=== PATIENT | male | born 1950 | race Caucasian/White ===

== ENCOUNTER 2023-01-18 21:31 | Emergency (ER) | payer MEDICARE, SELFPAY ==
--- NOTE | 2023-01-18 21:33 | XRR_ITS ---
PROCEDURE INFORMATION: Exam: XR Chest Exam date and time: 01/18/2023 9:59 PM Age: 72 years old Clinical indication: Wheezing and other: High heart rate; Additional info: Cp TECHNIQUE: Imaging protocol: Radiologic exam of the chest. Views: 1 view. COMPARISON: No relevant prior studies available. FINDINGS: Lungs: Bibasilar atelectasis versus minimal infiltrate. Pleural spaces: Unremarkable. No pleural effusion. No pneumothorax. Heart/Mediastinum: Unremarkable. No cardiomegaly. Bones/joints: Unremarkable. XR/XR chest 1V portable [id number] IMPRESSION: Bibasilar atelectasis versus minimal infiltrate.
--- NOTE | 2023-01-18 21:43 | ECG_ITS ---
[facility] Test Date: 2023-01-18 Pat Name: Trace Benavides Department: Room: Gender: Male Software Support Specialist: : 1950 Requested By: Shamir Yates Order Number: [id number] Paolo MD: Guillermo Bueno M.D. Measurements Intervals [place] Rate: 138 P: 0 NE: 0 QRS: -68 QRSD: 193 T: 0 QT: 307 QTc: 466 Interpretive Statements ATRIAL FLUTTER WITH RAPID VENTRICULAR RESPONSE INTRAVENTRICULAR CONDUCTION DELAY [130+ ms QRS DURATION] No previous ECG available for comparison Electronically Signed On 01-18-2023 23:41:34 JUNIOR LOAN PROCESSOR by Guillermo Bueno M.D. [email or web address] Grad Apartments LLCsharkey issaquena community hospitalA+ Networkriverview health instituteOpenfinance/store/OM/[id number]/[id number]
[2023-01-18 21:47] VITALS: BP 152/116; PULSE 141; RESP 21; O2SAT 97; BMI 36.9
[2023-01-18 21:50] VITALS: BP 152/116; PULSE 141; RESP 18; O2SAT 96
[2023-01-18 22:05] VITALS: BP 152/116; PULSE 142; RESP 16; O2SAT 96
--- NOTE | 2023-01-18 22:06 | ED_ITS ---
HPI - Arrhythmia/Palpitations General: Chief Complaint: Arrhythmia/Palpitations Stated Complaint: Chest Pain Time Seen by Provider: 01/18/23 21:53 Source: patient Mode of arrival: ambulatory Limitations: no limitations History of Present Illness: 72-year-old male states he has been having palpitations throughout the day. He states he had a similar episode 10 years ago he is unsure what caused it he has no known history of atrial fib is not on any meds currently states he checked his heart rate at home it was in the 140s it is 140 here as well and appears to be atrial flutter he denies any chest pain denies any shortness of breath states he does can tell that his heart rate is fast. Associated symptoms: Deny nausea or vomiting Review of Systems Const: Denies: fever(s), chills, body aches or change in appetite Eyes: Denies: blurry vision or eye discomfort ENMT: Denies: throat pain or dental pain Card: Reports: palpitations Resp: Denies: dyspnea GI: Denies: abdominal pain, nausea, vomiting or diarrhea : Denies: dysuria Musc: Denies: neck pain or back pain Skin/Breast: Denies: rash Neuro: Denies: headache(s) Psych: Denies: depression Aris/Lymph: Denies: easy bruising All/Imm: Denies: urticaria PFSH ED PFSH: Medical History No pertinent past medical history Social History (Updated 01/18/23 @ 22:06 by Shamir Yates MD) Substance/Drug Use: never Physical Exam Const: COMMON NORMALS: no acute distress, patient oriented x3 and healthy appearing HENMT: COMMON NORMALS: normocephalic and atraumatic HEAD & SCALP: normocephalic and atraumatic Eye: COMMON NORMALS: Equal, round and reactive pupils present and EOMs intact bilaterally PUPIL: Yes Equal, round and reactive pupils present Neck/C-Spine: COMMON NORMALS: full ROM and supple Chest: COMMONS NORMALS: normal inspection of the chest and normal palpation of entire chest wall Resp: COMMON NORMALS: normal respiratory effort, No retractions, No use of accessory muscles and clear to auscultation bilaterally AUSCULTATION: clear to auscultation bilaterally Cardio: COMMON NORMALS: regular rate, regular rhythm and No murmurs present (Cardio) RATE: regular rate RHYTHM: regular rhythm GI: COMMON NORMALS: Normal to inspection, nondistended, normoactive bowel sounds present, Soft to palpation, non-tender and no masses PALPATION: Yes Soft to palpation Extremity: COMMON NORMALS: normal to inspection and full ROM Neuro: COMMON NORMALS: patient oriented x3, moves all extremities and no focal motor deficits Psych: COMMON NORMALS: mental status grossly normal, Normal thought process present and cooperative THOUGHT PROCESS: Normal thought process present Skin: COMMON NORMALS: no rashes or lesions noted and no wounds GENERAL SKIN EXAM: no rashes or lesions noted Course Vital Signs: Vital signs: Vital Signs Pulse Rate 141 H 01/18/23 21:47 Respiratory Rate 21 H 01/18/23 21:47 Blood Pressure 152/116 01/18/23 21:47 Pulse Oximetry 97 01/18/23 21:47 Oxygen Delivery Me thod 01/18/23 21:47 MDM - Arrhythmia/Palpitations Medical Decision Making Patient presents with atrial flutter initially the RVR he converted here with Cardizem his heart rate is now in the 60s have spoke to cardiology Dr. Brown will start him on metoprolol along with Eliquis patient's feeling improved like to go home I feel he is stable for discharge we will get him follow-up with cardiology outpatient he is return if worsening he understands agrees to plan. Lab Data 01/18/23 21:53 01/18/23 21:53 Radiology Impressions Chest X-Ray 01/18/23 21:33 IMPRESSION: Bibasilar atelectasis versus minimal infiltrate. Laboratory Results WBC 7.7 10^3/uL (4.0-10.0) 01/18/23 21:53 RBC 5.19 10^6/uL (4.1-5.3) 01/18/23 21:53 Hgb 15.2 g/dL (11.7-16.6) 01/18/23 21:53 Hct 45.7 % (42.0-52.0) 01/18/23 21:53 MCV 88.1 fl (80-94) 01/18/23 21:53 MCH 29.3 pg (28.0-34.0) 01/18/23 21:53 MCHC 33.3 g/dL (30.0-36.0) 01/18/23 21:53 RDW 13.1 % (12.1-15.1) 01/18/23 21:53 Plt Count 214 10^3/cmm (130-400) 01/18/23 21:53 MPV 10.5 fL (7.4-10.4) H 01/18/23 21:53 Neut % (Auto) 35.0 % 01/18/23 21:53 Lymph % (Auto) 49.6 % 01/18/23 21:53 [place] % (Auto) 8.9 % 01/18/23 21:53 Eos % (Auto) 4.8 % 01/18/23 21:53 Baso % (Auto) 1.4 % 01/18/23 21:53 Neut # (Auto) 2.71 10^3/uL (1.8-7.7) 01/18/23 21:53 Lymph # (Auto) 3.8 10^3/uL (0.8-4.8) 01/18/23 21:53 [place] # (Auto) 0.7 10^3/uL (0.2-0.9) 01/18/23 21:53 Eos # (Auto) 0.4 10^3/uL (0.0-0.8) 01/18/23 21:53 Baso # (Auto) 0.1 10^3/uL (0.0-0.1) 01/18/23 21:53 Nucleated RBC % (auto) 0 % 01/18/23 21:53 Nucleated RBCs # 0.0 /100WBC 01/18/23 21:53 PT 14.20 SECONDS (12.1-14.9) 01/18/23 21:53 INR 1.07 (0.8-1.2) 01/18/23 21:53 Sodium 139 mmol/L (136-145) 01/18/23 21:53 Potassium 4.5 mmol/L (3.5-5.1) 01/18/23 21:53 Chloride 104 mmol/L (98-107) 01/18/23 21:53 Carbon Dioxide 24 mmol/L (22-29) 01/18/23 21:53 Anion Gap 15.5 (5-19) 01/18/23 21:53 BUN 15 mg/dL (8-23) 01/18/23 21:53 Creatinine 0.9 mg/dL (0.7-1.2) 01/18/23 21:53 GFR Calculation 83.4 mL/min (90-130) L 01/18/23 21:53 Glucose 104 mg/dL (65-115) 01/18/23 21:53 Calculated Osmolality 289 mOsm/kg (285-295) 01/18/23 21:53 Calcium 8.8 mg/dL (8.5-10.5) 01/18/23 21:53 Total Bilirubin 0.5 mg/dL (0.15-1.2) 01/18/23 21:53 AST 18 U/L (0-40) 01/18/23 21:53 ALT 17 U/L (0-41) 01/18/23 21:53 Alkaline Phosphatase 62 U/L (40-130) 01/18/23 21:53 Troponin T Baseline 15 ng/L (0-15) 01/18/23 21:53 Total Protein 6.5 g/dL (6.6-8.7) L 01/18/23 21:53 Albumin 3.9 g/dL (3.5-5.2) 01/18/23 21:53 Globulin 2.6 g/dL (1.3-4.6) 01/18/23 21:53 EKG Data EKG 1: I personally reviewed and interpreted this EKG as follows: EKG interpretation date: 01/18/23 EKG interpretation time: 21:43 Interpretation: atrial flutter with rvr hr [address] or t wave abnormalities qrs 193 qtc 387 Other EKG comments: Chest X-Ray 01/18/23 21:33 IMPRESSION: Bibasilar atelectasis versus minimal infiltrate. Discharge Plan Discharge Patient Disposition: Home Clinical Impression: Atrial flutter Prescriptions: New metoprolol tartrate 25 mg tablet 25 mg PO BID Qty: 60 0RF Eliquis 5 mg tablet 5 mg PO BID Qty: 60 0RF Discharge Orders: Discharge ED (Routine); Ordered 01/18/23 Ordered By: Shamir Yates Referrals: Seema Brown MD [Physician] - 1-3 days Discharge Diet: Advance as tolerated Discharge Activity: Resume usual activity Patient Instructions: Atrial Flutter (ED) Coding Level of Care Code ED Gas Engine Operator Generators for Rita Garvey
[2023-01-18 22:10] LABS: Basophils # 0.1 10^3/uL (0.0-0.1); Basophils % 1.4 %; Eosinophils # 0.4 10^3/uL (0.0-0.8); Eosinophils % 4.8 %; Hematocrit 45.7 % (42.0-52.0); Hemoglobin 15.2 g/dL (11.7-16.6); Lymphocytes # 3.8 10^3/uL (0.8-4.8); Lymphocytes % 49.6 %; Mean Corpuscular HGB Conc 33.3 g/dL (30.0-36.0); Mean Corpuscular Hemoglobin 29.3 pg (28.0-34.0); Mean Corpuscular Volume 88.1 fl (80-94); Mean Platelet Volume 10.5 fL (7.4-10.4); Monocytes # 0.7 10^3/uL (0.2-0.9); Monocytes % 8.9 %; Neutrophils # 2.71 10^3/uL (1.8-7.7); Nucleated Red Blood Cells % 0 %; Platelet Count 214 10^3/cmm (130-400); Red Blood Count 5.19 10^6/uL (4.1-5.3); Red Cell Distribution Width 13.1 % (12.1-15.1); White Blood Count 7.7 10^3/uL (4.0-10.0)
[2023-01-18] MEDS: dilTIAZem 5 mg/mL SDV 5 mL 20 MG IVP (22:10)
[2023-01-18] MEDS: sodium chloride 0.9% 1,000 ML 999 ML IV (22:11)
[2023-01-18 22:20] VITALS: BP 127/97; PULSE 140; RESP 20; O2SAT 96
[2023-01-18 22:22] LABS: INR 1.07 (0.8-1.2)
[2023-01-18 22:28] LABS: Troponin(5th) Baseline 15 ng/L (0-15)
[2023-01-18 22:29] LABS: Alanine Aminotransferase 17 U/L (0-41); Albumin Level 3.9 g/dL (3.5-5.2); Alkaline Phosphatase 62 U/L (40-130); Anion Gap 15.5 (5-19); Aspartate Amino Transferase 18 U/L (0-40); Blood Urea Nitrogen 15 mg/dL (8-23); Calcium 8.8 mg/dL (8.5-10.5); Carbon Dioxide 24 mmol/L (22-29); Chloride 104 mmol/L (98-107); Globulin 2.6 g/dL (1.3-4.6); Glomerular Filtration Rate 83.4 mL/min (90-130); Glucose 104 mg/dL (65-115); Osmolality Calculated 289 mOsm/kg (285-295); Potassium 4.5 mmol/L (3.5-5.1); Sodium 139 mmol/L (136-145); Total Bilirubin 0.5 mg/dL (0.15-1.2); Total Protein 6.5 g/dL (6.6-8.7)
[2023-01-18 22:35] VITALS: BP 111/63; PULSE 61; RESP 18; O2SAT 96
[2023-01-18 22:50] VITALS: BP 111/69; PULSE 63; RESP 16; O2SAT 95
--- NOTE | 2023-01-18 23:33 | ECG_ITS ---
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 Measurements Intervals [place] Rate: 61 P: 0 [place]: 0 QRS: -48 QRSD: 130 T: -42 QT: 417 QTc: 421 Interpretive Statements UNCERTAIN IRREGULAR RHYTHM LEFT ANTERIOR FASCICULAR BLOCK [QRS AXIS <= -45, QR IN I, RS IN II] NONSPECIFIC ST & T-WAVE ABNORMALITY Compared to ECG 01/18/2023 21:43:47 Left anterior fascicular block now present T-wave abnormality now present Atrial flutter no longer present Intraventricular conduction delay no longer present Electronically Signed On 01-18-2023 23:43:08 GERIATRICS PHYSICIAN by Guillermo Bueno M.D. [email or web address] Networkslos alamitos [facility].SustainU/store/OM/[id number]/[id number]
--- NOTE | 2023-01-19 08:17 | DCPLANNER ---
Addendum entered by Melissa Lu 03/17/23 13:36: Patient had a follow up appointment with heart care - patient did attend appointment. Addendum entered by Melissa Lu 01/19/23 13:50: Patient has a follow up appointment scheduled for Wednesday March 15, 2023 at 3:[address] Brown at [facility]. Clinic will call patient with appointment information. Original Note: operations program manager had message to schedule a follow up appointment for patient with cardiology. operations program manager sent patients information to the front office staff at [facility]. Patients information will be printed and reviewed. Clinic will call patient with appointment information.
== END 2023-01-18 22:55 | disposition home or self-care (01) ==
PROVIDERS: Emergency Provider Emergency Medicine
DX: I48.92 Unspecified atrial flutter (principal); Z79.01 Long term (current) use of anticoagulants
CPT/HCPCS: 36415; 71045; 80053; 84484; 85025; 85610; 93005; 96361; 96374; 99285; J3490; J7030

== ENCOUNTER 2023-01-19 17:02 | Emergency (ER) | payer MEDICARE, SELFPAY ==
[2023-01-19] VITALS (30 sets, daily range): BP systolic 120–122; BP diastolic 77–88; PULSE 50–133; RESP 14–25; TEMP 36.5; O2SAT 88–97; BMI 36.9
--- NOTE | 2023-01-19 17:23 | ECG_ITS ---
[facility] Test Date: 2023-01-19 Pat Name: Trace Benavides Department: Room: Gender: Male Superintendent Cemetery: : 1950 Requested By: Benjamín Pena Order Number: [id number] Paolo MD: Seema Brown M.D. Measurements Intervals [place] Rate: 132 P: 261 GA: 161 QRS: -64 QRSD: 206 T: 0 QT: 320 QTc: 475 Interpretive Statements ECTOPIC ATRIAL TACHYCARDIA/atrial flutter RIGHT BUNDLE BRANCH BLOCK [120+ ms QRS DURATION, UPRIGHT V1, 40+ ms S IN I/aVL/V4/V5/V6] LEFT ANTERIOR FASCICULAR BLOCK [QRS AXIS <= -45, QR IN I, RS IN II] POSSIBLE SEPTAL MYOCARDIAL INFARCTION , PROBABLY OLD [30 ms Q WAVE IN V1/V2] Compared to ECG 01/18/2023 22:23:38 Right bundle-branch block now present Myocardial infarct finding now present T-wave abnormality no longer present Electronically Signed On 01-20-2023 14:15:17 DUCK FARMER by Seema Brown M.D. [email or web address].Neosens/store/[id number]
--- NOTE | 2023-01-19 17:25 | ECG_ITS ---
[facility] Test Date: 2023-01-19 Pat Name: Trace Benavides Department: Room: Gender: Male Material Specialist: : 1950 Requested By: Shamir Yates Order Number: [id number] Paolo MD: Seema Brown M.D. Measurements Intervals [place] Rate: 127 P: -82 PA: 161 QRS: -63 QRSD: 199 T: 0 QT: 324 QTc: 472 Interpretive Statements Ectopic atrial tachycardia/atrial flutter Left anterior fascicular block INTRAVENTRICULAR CONDUCTION DELAY [130+ ms QRS DURATION] Compared to ECG 01/18/2023 22:23:38 Intraventricular conduction delay now present T-wave abnormality no longer present Electronically Signed On 01-20-2023 14:18:14 ORNAMENTAL METAL WORKER APPRENTICE by Seema Brown M.D. [email or web address].Riiid81st medical groupGeeklistmercy health west hospital.SOLOMO365/store/OM/[id number]
[2023-01-19] MEDS: dilTIAZem 5 mg/mL SDV 5 mL 15 MG IVP (17:46)
[2023-01-19] MEDS: sodium chloride 0.9% 1,000 ML 999 ML IV (17:46)
[2023-01-19 18:24] LABS: Basophils # 0.1 10^3/uL (0.0-0.1); Basophils % 1.6 %; Eosinophils # 0.4 10^3/uL (0.0-0.8); Eosinophils % 6.4 %; Hematocrit 44.2 % (42.0-52.0); Hemoglobin 14.6 g/dL (11.7-16.6); Lymphocytes # 2.9 10^3/uL (0.8-4.8); Lymphocytes % 48.1 %; Mean Corpuscular Hemoglobin 29.4 pg (28.0-34.0); Mean Corpuscular Volume 88.9 fl (80-94); Mean Platelet Volume 10.5 fL (7.4-10.4); Monocytes # 0.6 10^3/uL (0.2-0.9); Monocytes % 10.5 %; Neutrophils # 2.01 10^3/uL (1.8-7.7); Neutrophils % 33.2 %; Nucleated Red Blood Cells % 0 %; Platelet Count 208 10^3/cmm (130-400); Red Blood Count 4.97 10^6/uL (4.1-5.3); Red Cell Distribution Width 13.1 % (12.1-15.1); White Blood Count 6.1 10^3/uL (4.0-10.0)
--- NOTE | 2023-01-19 18:28 | ED_ITS ---
HPI - Arrhythmia/Palpitations General: Chief Complaint: Arrhythmia/Palpitations Stated Complaint: irregular hr Time Seen by Provider: 01/19/23 17:35 Source: patient Mode of arrival: ambulatory Limitations: no limitations History of Present Illness: 72-year-old male who was seen here last night for atrial flutter with RVR he started on metoprolol he states that he had went back and before he took his morning dose and has been heart rate in the 120s throughout the day he was originally in the 120s here by time I had seen him he did already receive Cardizem and he is now in the 50s. He denies any chest pain states he is felt great all day actually. Associated symptoms: Deny nausea or vomiting Review of Systems Const: Denies: fever(s), chills, body aches or change in appetite Eyes: Denies: blurry vision or eye discomfort ENMT: Denies: throat pain or dental pain Card: Reports: palpitations Resp: Denies: dyspnea GI: Denies: abdominal pain, nausea, vomiting or diarrhea : Denies: dysuria Musc: Denies: neck pain or back pain Skin/Breast: Denies: rash Neuro: Denies: headache(s) Psych: Denies: depression Aris/Lymph: Denies: easy bruising All/Imm: Denies: urticaria PFSH ED PFSH: Medical History No pertinent past medical history Social History Substance/Drug Use: never Physical Exam Const: COMMON NORMALS: no acute distress, patient oriented x3 and healthy appearing HENMT: COMMON NORMALS: normocephalic and atraumatic HEAD & SCALP: normocephalic and atraumatic Eye: COMMON NORMALS: Equal, round and reactive pupils present and EOMs intact bilaterally PUPIL: Yes Equal, round and reactive pupils present Neck/C-Spine: COMMON NORMALS: full ROM and supple Chest: COMMONS NORMALS: normal inspection of the chest and normal palpation of entire chest wall Resp: COMMON NORMALS: normal respiratory effort, No retractions, No use of accessory muscles and clear to auscultation bilaterally AUSCULTATION: clear to auscultation bilaterally Cardio: COMMON NORMALS: regular rate, regular rhythm and No murmurs present (Cardio) RATE: regular rate RHYTHM: regular rhythm GI: COMMON NORMALS: Normal to inspection, nondistended, normoactive bowel sounds present, Soft to palpation, non-tender and no masses PALPATION: Yes Soft to palpation Extremity: COMMON NORMALS: normal to inspection and full ROM Neuro: COMMON NORMALS: patient oriented x3, moves all extremities and no focal motor deficits Psych: COMMON NORMALS: mental status grossly normal, Normal thought process present and cooperative THOUGHT PROCESS: Normal thought process present Skin: COMMON NORMALS: no rashes or lesions noted and no wounds GENERAL SKIN EXAM: no rashes or lesions noted Course Vital Signs: Vital signs: Vital Signs Temperature 97.7 F 01/19/23 17:15 Pulse Rate 53 L 01/19/23 20:00 Respiratory Rate 23 H 01/19/23 20:00 Blood Pressure 120/77 01/19/23 20:00 Pulse Oximetry 97 01/19/23 20:00 Oxygen Delivery Me thod 01/19/23 17:15 MDM - Arrhythmia/Palpitations Medical Decision Making Patient presents with atrial flutter he did drink coffee his morning and take his metoprolol get likely stenting back in the flutter he is converted here he feels improved he had no chest pain or shortness of breath I feel he is stable for discharge he is to continue take his metoprolol try to limit his caffeine intake he is to follow-up with Dr. Brown. Lab Data 01/19/23 18:13 01/19/23 18:13 Laboratory Results WBC 6.1 10^3/uL (4.0-10.0) 01/19/23 18:13 RBC 4.97 10^6/uL (4.1-5.3) 01/19/23 18:13 Hgb 14.6 g/dL (11.7-16.6) 01/19/23 18:13 Hct 44.2 % (42.0-52.0) 01/19/23 18:13 MCV 88.9 fl (80-94) 01/19/23 18:13 MCH 29.4 pg (28.0-34.0) 01/19/23 18:13 MCHC 33.0 g/dL (30.0-36.0) 01/19/23 18:13 RDW 13.1 % (12.1-15.1) 01/19/23 18:13 Plt Count 208 10^3/cmm (130-400) 01/19/23 18:13 MPV 10.5 fL (7.4-10.4) H 01/19/23 18:13 Neut % (Auto) 33.2 % 01/19/23 18:13 Lymph % (Auto) 48.1 % 01/19/23 18:13 [place] % (Auto) 10.5 % 01/19/23 18:13 Eos % (Auto) 6.4 % 01/19/23 18:13 Baso % (Auto) 1.6 % 01/19/23 18:13 Neut # (Auto) 2.01 10^3/uL (1.8-7.7) 01/19/23 18:13 Lymph # (Auto) 2.9 10^3/uL (0.8-4.8) 01/19/23 18:13 [place] # (Auto) 0.6 10^3/uL (0.2-0.9) 01/19/23 18:13 Eos # (Auto) 0.4 10^3/uL (0.0-0.8) 01/19/23 18:13 Baso # (Auto) 0.1 10^3/uL (0.0-0.1) 01/19/23 18:13 Nucleated RBC % (auto) 0 % 01/19/23 18:13 Nucleated RBCs # 0.0 /100WBC 01/19/23 18:13 Sodium 140 mmol/L (136-145) 01/19/23 18:13 Potassium 4.5 mmol/L (3.5-5.1) 01/19/23 18:13 Chloride 107 mmol/L (98-107) 01/19/23 18:13 Carbon Dioxide 23 mmol/L (22-29) 01/19/23 18:13 Anion Gap 14.5 (5-19) 01/19/23 18:13 BUN 15 mg/dL (8-23) 01/19/23 18:13 Creatinine 0.8 mg/dL (0.7-1.2) 01/19/23 18:13 GFR Calculation 95.6 mL/min (90-130) 01/19/23 18:13 Glucose 112 mg/dL (65-115) 01/19/23 18:13 Calculated Osmolality 292 mOsm/kg (285-295) 01/19/23 18:13 Calcium 8.4 mg/dL (8.5-10.5) L 01/19/23 18:13 Total Bilirubin 0.5 mg/dL (0.15-1.2) 01/19/23 18:13 AST 18 U/L (0-40) 01/19/23 18:13 ALT 14 U/L (0-41) 01/19/23 18:13 Alkaline Phosphatase 56 U/L (40-130) 01/19/23 18:13 Total Protein 6.3 g/dL (6.6-8.7) L 01/19/23 18:13 Albumin 3.6 g/dL (3.5-5.2) 01/19/23 18:13 Globulin 2.7 g/dL (1.3-4.6) 01/19/23 18:13 EKG Data EKG 1: I personally reviewed and interpreted this EKG as follows: EKG interpretation date: 01/19/23 EKG interpretation time: 17:41 Interpretation: sinus tach hr [address] or t wave abnormalities qrs 199 qtc 399 Discharge Plan Discharge Patient Disposition: Home Clinical Impression: Atrial flutter Prescriptions: No Action metoprolol tartrate 25 mg tablet 25 mg PO BID Qty: 60 0RF Eliquis 5 mg tablet 5 mg PO BID Qty: 60 0RF Discharge Orders: Discharge ED (Routine); Ordered 01/19/23 Ordered By: Shamir Yates Discharge Diet: Advance as tolerated Discharge Activity: Resume usual activity Patient Instructions: Atrial Flutter (ED) Coding Level of Care Code ED Representative Personal Service for Rita Garvey
[2023-01-19 18:38] LABS: Alanine Aminotransferase 14 U/L (0-41); Albumin Level 3.6 g/dL (3.5-5.2); Alkaline Phosphatase 56 U/L (40-130); Anion Gap 14.5 (5-19); Aspartate Amino Transferase 18 U/L (0-40); Blood Urea Nitrogen 15 mg/dL (8-23); Calcium 8.4 mg/dL (8.5-10.5); Carbon Dioxide 23 mmol/L (22-29); Chloride 107 mmol/L (98-107); Globulin 2.7 g/dL (1.3-4.6); Glomerular Filtration Rate 95.6 mL/min (90-130); Glucose 112 mg/dL (65-115); Osmolality Calculated 292 mOsm/kg (285-295); Potassium 4.5 mmol/L (3.5-5.1); Sodium 140 mmol/L (136-145); Total Bilirubin 0.5 mg/dL (0.15-1.2); Total Protein 6.3 g/dL (6.6-8.7)
--- NOTE | 2023-01-27 15:09 | DCPLANNER ---
Addendum entered by Melissa Lu 01/27/23 15:09: TCM called patient due to no primary care physician listed in patients chart - patient stated that he sees Patrick Carlson at [facility] Original Note: 01.22.23 - TCM called patient due to no primary care physician listed in patients chart - no answer at this time.
== END 2023-01-19 20:06 | disposition home or self-care (01) ==
PROVIDERS: Family Medicine; Emergency Provider Emergency Medicine
DX: I48.92 Unspecified atrial flutter (principal)
CPT/HCPCS: 36415; 80053; 85025; 93005; 96374; 99284; J3490; J7030

== ENCOUNTER 2023-01-21 16:57 | Observation (INO) | payer MEDICARE, SELFPAY ==
[2023-01-21] VITALS (8 sets, daily range): BP systolic 101–124; BP diastolic 64–92; PULSE 48–128; RESP 14–22; TEMP 36.4; O2SAT 95–98
--- NOTE | 2023-01-21 18:02 | XRR_ITS ---
PROCEDURE INFORMATION: Exam: XR Chest Exam date and time: 01/21/2023 6:42 PM Age: 72 years old Clinical indication: Pain; Chest pressure; Additional info: Cp TECHNIQUE: Imaging protocol: Radiologic exam of the chest. Views: 1 view. COMPARISON: CR (CHEST, ) 01/18/2023 9:59 PM FINDINGS: Lungs: Left lower lobe atelectasis versus minimal infiltrate. Pleural spaces: Unremarkable. No pleural effusion. No pneumothorax. Heart/Mediastinum: Unremarkable. No cardiomegaly. Bones/joints: Unremarkable. XR/XR chest 1V portable [id number] IMPRESSION: Left lower lobe atelectasis versus minimal infiltrate.
--- NOTE | 2023-01-21 18:02 | ECG_ITS ---
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 Measurements Intervals [place] Rate: 129 P: -80 MD: 211 QRS: -65 QRSD: 200 T: 0 QT: 317 QTc: 465 Interpretive Statements ECTOPIC ATRIAL TACHYCARDIA WITH FIRST DEGREE AV BLOCK RIGHT BUNDLE BRANCH BLOCK [120+ ms QRS DURATION, UPRIGHT V1, 40+ ms S IN I/aVL/V4/V5/V6] LEFT ANTERIOR FASCICULAR BLOCK [QRS AXIS <= -45, QR IN I, RS IN II] POSSIBLE SEPTAL MYOCARDIAL INFARCTION , PROBABLY OLD [30 ms Q WAVE IN V1/V2] Compared to ECG 01/19/2023 17:41:38 First degree AV block now present Right bundle-branch block now present Myocardial infarct finding now present Intraventricular conduction delay no longer present Electronically Signed On 01-22-2023 21:39:17 WINDING DEPARTMENT SUPERVISOR by Seema Brown M.D. [email or web address] saint peters hospitalKnewCoinselect medical [facility].[employer]/store/NU/[id number] sabrina
[2023-01-21 18:27] LABS: Basophils # 0.1 10^3/uL (0.0-0.1); Basophils % 1.4 %; Eosinophils # 0.4 10^3/uL (0.0-0.8); Eosinophils % 5.5 %; Hematocrit 44.9 % (42.0-52.0); Hemoglobin 14.9 g/dL (11.7-16.6); Lymphocytes # 3.2 10^3/uL (0.8-4.8); Lymphocytes % 39.8 %; Mean Corpuscular HGB Conc 33.2 g/dL (30.0-36.0); Mean Corpuscular Hemoglobin 28.9 pg (28.0-34.0); Mean Platelet Volume 10.7 fL (7.4-10.4); Monocytes # 0.7 10^3/uL (0.2-0.9); Monocytes % 8.2 %; Neutrophils # 3.55 10^3/uL (1.8-7.7); Neutrophils % 44.8 %; Nucleated Red Blood Cells % 0 %; Platelet Count 222 10^3/cmm (130-400); Red Blood Count 5.16 10^6/uL (4.1-5.3); Red Cell Distribution Width 13.1 % (12.1-15.1); White Blood Count 7.9 10^3/uL (4.0-10.0)
[2023-01-21] MEDS: dilTIAZem 5 mg/mL SDV 5 mL 10 MG IVP (18:34)
[2023-01-21 18:45] LABS: INR 1.12 (0.8-1.2)
[2023-01-21 18:52] LABS: Troponin(5th) Baseline 11 ng/L (0-15)
--- NOTE | 2023-01-21 19:09 | W.ED.CHESTPA ---
HPI - Chest Pain General: Chief Complaint: Chest Pain Stated Complaint: chest pain Time Seen by Provider: 01/21/23 18:02 Source: patient Mode of arrival: ambulatory Limitations: no limitations History of Present Illness: 72-year-old male who is got a history of atrial flutter he has been seen twice before he started on metoprolol the first time second time he drink caffeine went back into flutter was converted easily both times the Cardizem he is here again today with flutter heart rate in the 120s denies any pain denies any shortness of breath denies any vomiting. Associated symptoms: Reports palpitations; Deny abdominal pain, dyspnea, fever(s), nausea or vomiting Review of Systems Const: Denies: fever(s), chills, body aches or change in appetite Eyes: Denies: blurry vision or eye discomfort ENMT: Denies: throat pain or dental pain Card: Reports: palpitations and irregular heart rhythm; Denies: chest pain Resp: Denies: dyspnea GI: Denies: abdominal pain, nausea, vomiting or diarrhea : Denies: dysuria Musc: Denies: neck pain or back pain Skin/Breast: Denies: rash Neuro: Denies: headache(s) Psych: Denies: depression Aris/Lymph: Denies: easy bruising All/Imm: Denies: urticaria PFSH ED PFSH: Medical History No pertinent past medical history Social History Substance/Drug Use: never Physical Exam Const: COMMON NORMALS: no acute distress, patient oriented x3 and healthy appearing HENMT: COMMON NORMALS: normocephalic and atraumatic HEAD & SCALP: normocephalic and atraumatic Eye: COMMON NORMALS: Equal, round and reactive pupils present and EOMs intact bilaterally PUPIL: Yes Equal, round and reactive pupils present Neck/C-Spine: COMMON NORMALS: full ROM and supple Chest: COMMONS NORMALS: normal inspection of the chest and normal palpation of entire chest wall Resp: COMMON NORMALS: normal respiratory effort, No retractions, No use of accessory muscles and clear to auscultation bilaterally AUSCULTATION: clear to auscultation bilaterally Cardio: COMMON NORMALS: No murmurs present (Cardio) RATE: tachycardic RHYTHM: abnormal rhythm irregularly irregular GI: COMMON NORMALS: Normal to inspection, nondistended, normoactive bowel sounds present, Soft to palpation, non-tender and no masses PALPATION: Yes Soft to palpation Extremity: COMMON NORMALS: normal to inspection and full ROM Neuro: COMMON NORMALS: patient oriented x3, moves all extremities and no focal motor deficits Psych: COMMON NORMALS: mental status grossly normal, Normal thought process present and cooperative THOUGHT PROCESS: Normal thought process present Skin: COMMON NORMALS: no rashes or lesions noted and no wounds GENERAL SKIN EXAM: no rashes or lesions noted Course Vital Signs: Vital signs: Vital Signs Temperature 97.5 F L 01/21/23 17:10 Pulse Rate 79 01/21/23 19:16 Respiratory Rate 22 H 01/21/23 19:16 Blood Pressure 109/64 01/21/23 19:16 Pulse Oximetry 97 01/21/23 19:16 Oxygen Delivery Me thod 01/21/23 18:01 MDM - Chest Pain Medical Decision Making Patient presents here with atrial flutter is his third visit he keeps going in and out of it he is converted again here with Cardizem his heart rates now in the 50s admitted speak to Dr. Brown and his is his third visit in 4 days will admit at this time for med adjustment. Lab Data 01/21/23 18:21 01/21/23 18:21 Radiology Impressions Chest X-Ray 01/21/23 18:02 IMPRESSION: Left lower lobe atelectasis versus minimal infiltrate. Laboratory Results WBC 7.9 10^3/uL (4.0-10.0) 01/21/23 18:21 RBC 5.16 10^6/uL (4.1-5.3) 01/21/23 18:21 Hgb 14.9 g/dL (11.7-16.6) 01/21/23 18:21 Hct 44.9 % (42.0-52.0) 01/21/23 18:21 MCV 87.0 fl (80-94) 01/21/23 18:21 MCH 28.9 pg (28.0-34.0) 01/21/23 18: MCHC 33.2 g/dL (30.0-36.0) 01/21/23 18:21 RDW 13.1 % (12.1-15.1) 01/21/23 18:21 Plt Count 222 10^3/cmm (130-400) 01/21/23 18:21 MPV 10.7 fL (7.4-10.4) H 01/21/23 18:21 Neut % (Auto) 44.8 % 01/21/23 18:21 Lymph % (Auto) 39.8 % 01/21/23 18:21 [place] % (Auto) 8.2 % 01/21/23 18:21 Eos % (Auto) 5.5 % 01/21/23 18:21 Baso % (Auto) 1.4 % 01/21/23 18: Neut # (Auto) 3.55 10^3/uL (1.8-7.7) 01/21/23 18: Lymph # (Auto) 3.2 10^3/uL (0.8-4.8) 01/21/23 18:21 [place] # (Auto) 0.7 10^3/uL (0.2-0.9) 01/21/23 18:21 Eos # (Auto) 0.4 10^3/uL (0.0-0.8) 01/21/23 18: Baso # (Auto) 0.1 10^3/uL (0.0-0.1) 01/21/23 18: Nucleated RBC % (auto) 0 % 01/21/23 18: Nucleated RBCs # 0.0 /100WBC 01/21/23 18: PT 14.80 SECONDS (12.1-14.9) 01/21/23 18:21 INR 1.12 (0.8-1.2) 01/21/23 18:21 Sodium 141 mmol/L (136-145) 01/21/23 18:21 Potassium 4.8 mmol/L (3.5-5.1) 01/21/23 18:21 Chloride 106 mmol/L (98-107) 01/21/23 18:21 Carbon Dioxide 20 mmol/L (22-29) L 01/21/23 18:21 Anion Gap 19.8 (5-19) H 01/21/23 18:21 BUN 16 mg/dL (8-23) 01/21/23 18:21 Creatinine 0.7 mg/dL (0.7-1.2) 01/21/23 18:21 GFR Calculation 111.5 mL/min (90-130) 01/21/23 18:21 Glucose 114 mg/dL (65-115) 01/21/23 18:21 Calculated Osmolality 294 mOsm/kg (285-295) 01/21/23 18:21 Calcium 8.8 mg/dL (8.5-10.5) 01/21/23 18:21 Total Bilirubin 0.4 mg/dL (0.15-1.2) 01/21/23 18:21 AST 17 U/L (0-40) 01/21/23 18:21 ALT 17 U/L (0-41) 01/21/23 18:21 Alkaline Phosphatase 63 U/L (40-130) 01/21/23 18:21 Troponin T Baseline 11 ng/L (0-15) 01/21/23 18:21 Total Protein 6.5 g/dL (6.6-8.7) L 01/21/23 18:21 Albumin 4.0 g/dL (3.5-5.2) 01/21/23 18:21 Globulin 2.5 g/dL (1.3-4.6) 01/21/23 18:21 Discharge Plan Discharge Patient Disposition: Admitted As Inpatient Clinical Impression: Atrial flutter Prescriptions: No Action metoprolol tartrate 25 mg tablet 25 mg PO BID Qty: 60 0RF Eliquis 5 mg tablet 5 mg PO BID Qty: 60 0RF aspirin 81 mg Tablet,Chewable 81 mg PO DAILY Referrals: Seema Brown MD [Primary Care Provider] - Coding Level of Care Code ED 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
[2023-01-21 19:10] LABS: Alanine Aminotransferase 17 U/L (0-41); Alkaline Phosphatase 63 U/L (40-130); Anion Gap 19.8 (5-19); Aspartate Amino Transferase 17 U/L (0-40); Blood Urea Nitrogen 16 mg/dL (8-23); Calcium 8.8 mg/dL (8.5-10.5); Carbon Dioxide 20 mmol/L (22-29); Chloride 106 mmol/L (98-107); Globulin 2.5 g/dL (1.3-4.6); Glomerular Filtration Rate 111.5 mL/min (90-130); Glucose 114 mg/dL (65-115); Osmolality Calculated 294 mOsm/kg (285-295); Potassium 4.8 mmol/L (3.5-5.1); Sodium 141 mmol/L (136-145); Total Bilirubin 0.4 mg/dL (0.15-1.2); Total Protein 6.5 g/dL (6.6-8.7)
--- NOTE | 2023-01-21 19:54 | ECG_ITS ---
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 Measurements Intervals [place] Rate: 55 P: 0 MO: 0 QRS: -56 QRSD: 128 T: -54 QT: 425 QTc: 407 Interpretive Statements Ectopic atrial rhythm with bradycardia and junctional escape beats and occasional PVCs RIGHT BUNDLE BRANCH BLOCK [120+ ms QRS DURATION, UPRIGHT V1, 40+ ms S IN I/aVL/V4/V5/V6] LEFT ANTERIOR FASCICULAR BLOCK [QRS AXIS <= -45, QR IN I, RS IN II] MODERATE T-WAVE ABNORMALITY, CONSIDER INFERIOR ISCHEMIA [-0.1+ mV T-WAVE IN II/aVF] Compared to ECG 01/21/2023 17:17:34 Ventricular premature complex(es) now present Aberrant conduction of supraventricular beat(s) now present T-wave abnormality now present.Possible ischemia now present First degree AV block no longer present.Myocardial infarct finding no longer present Electronically Signed On 01-22-2023 21:52:22 ENGINEERING DOCUMENTATION SPECIALIST by Seema Brown M.D. [id number]
--- NOTE | 2023-01-21 20:56 | P.HP_ITS ---
Providers/Chief Complaint Primary Care Provider: Seema Brown MD Chief Complaint: chest pain History of Present Illness Trace Benavides is a 72 year old male with past medical history of recently diagnosed atrial flutter, this is his third admission in quick succession for the management of atrial flutter with RVR, during his last 2 prior admission he converted to normal sinus rhythm in ER and was sent home on metoprolol tartrate 25 mg p.o. twice daily along with Eliquis for anticoagulation, came in today with similar presentation of a flutter with RVR, with heart rate in 120s ,he was complaining of 1 or 2 episodes of substernal chest pain today, which spontaneously resolved, denied any diaphoresis, shortness of breath, nausea vomiting headache.He received Cardizem 10 mg IV 1 dose in the ER today. Pertinent labs: WBC 7.9, H&H 14/44 PLT: 222, serum sodium 141 serum potassium 4.8, BUN 16 serum creatinine 0.7 Troponin trend: Unremarkable EKG: On arrival has shown ectopic atrial tachycardia with first-degree AV block,RBBB Telemetry monitoring is showing PVCs. Review of Systems General: Reports: 10 or more systems reviewed and unremarkable except in HPI and below Const: Denies: fever(s), chills, body aches, change in appetite or diaphoresis Card: Denies: palpitations, edema, swelling of feet/ankles, dyspnea on exertion, orthopnea or leg pain with exertion Resp: Denies: dyspnea, productive cough, wheezing or pain on inspiration GI: Denies: abdominal pain, nausea, vomiting, diarrhea or constipation : Denies: flank pain or difficulty urinating Musc: Denies: back pain, extremity pain or extremity swelling Neuro: Denies: headache(s), difficulty walking or confusion Medications/Allergies Home Medications Medication Instructions Recorded Confirmed Last Taken Type apixaban 5 mg tablet (Eliquis) 5 mg PO BID #60 tabs 01/18/23 01/21/23 01/21/23 Rx metoprolol tartrate 25 mg tablet 25 mg PO BID #60 tabs 01/18/23 01/21/23 01/21/23 Rx aspirin 81 mg chewable tablet 81 mg PO DAILY 01/21/23 01/21/23 01/20/23 History Allergies Allergy/AdvReac Type Severity Reaction Status Date / Time No Known Allergies Allergy Verified 01/21/23 17:14 PFSH Acute PFSH: Medical History No pertinent past medical history Social History Substance/Drug Use: never Vitals/I&O/Wt Last Vital Signs Temp 97.5 F L 01/21/23 17:10 Pulse 79 01/21/23 19:16 Resp 22 H 01/21/23 19:16 BP 109/64 01/21/23 19:16 Pulse Ox 97 01/21/23 19:16 O2 Del Method 01/21/23 18:01 Weight last 48 hrs Weight 114.305 kg Physical Exam Const: COMMON NORMALS: patient oriented x3 HENMT: COMMON NORMALS: normocephalic and atraumatic Chest: COMMONS NORMALS: normal inspection of the chest and normal palpation of entire chest wall CHEST: Yes Symmetrical chest wall rise Resp: COMMON NORMALS: clear to auscultation bilaterally AUSCULTATION: clear to auscultation bilaterally Cardio: COMMON NORMALS: regular rate, regular rhythm, S1 normal heart sound present, S2 normal heart sound present, No gallops present (Cardio), No murmurs present (Cardio), No rub (Cardio) and Peripheral pulses 2+ throughout RATE: regular rate RHYTHM: regular rhythm HEART SOUNDS: S1 normal heart sound present and S2 normal heart sound present PERIPHERAL PULSES: Peripheral pulses 2+ throughout GI: COMMON NORMALS: Normal to inspection, nondistended, normoactive bowel sounds present, Soft to palpation, non-tender, No hepatosplenomegaly present and no masses AUSCULTATION: Yes normoactive bowel sounds PALPATION: Yes Soft to palpation and Yes No hepatosplenomegaly present RECTAL EXAM: Yes deferred Extremity: COMMON NORMALS: no clubbing, cyanosis or edema and no pedal edema Neuro: COMMON NORMALS: patient oriented x3 Data 01/21/23 18:21 01/21/23 18:21 A&P Assessment and plan (1) Atrial flutter with rapid ventricular response: Plan 72 year old male with past medical history of recently diagnosed atrial flutter, this is his third admission in quick succession for the management of atrial flutter with RVR, during his last 2 prior admission he converted to normal sinus rhythm in ER and was sent home on metoprolol tartrate 25 mg p.o. twice daily along with Eliquis for anticoagulation, came in today with similar presentation of a flutter with RVR, he was complaining of 1 or 2 episodes of substernal chest pain today, which spontaneously resolved, denied any diaphoresis, shortness of breath, nausea vomiting headache.He received Cardizem 10 mg IV 1 dose in the ER today. Assessment: A flutter with RVR Currently EKG showing ectopic atrial tachycardia, telemetry monitoring PVCs Follow 2D echo TSH Currently on therapeutic anticoagulation with [facility] on board, plan to do stress test to rule out underlying coronary artery disease. CODE STATUS: Full code DVT prophylaxis: On Lovenox Attestations Medical Necessity Statement*: Patient is in hospital for management of A-fib with RVR. Anticipated length of stay greater 2 midnights Coding Level of Care Code 01425 Diagnoses Atrial flutter with rapid ventricular response I48.92
--- NOTE | 2023-01-21 20:56 | USCV_ITS ---
Trace Benavides Age: 72 Gender: M : 1950 Exam Date: 01/21/2023 22:22 Ordering Phys: Ahsan Cee MD Technologist: NENITA Exam Location: [facility] [place] Indication: new onset atrial flutter. No history of cardiac intervention per patient. BP: 109 / 64 HR: 47 Rhythm: Sinus Technical Quality: Technically difficult study with OPTISON MEASUREMENTS (Male / Female) Normal Values 2D ECHO LV Diastolic Diameter PLAX 4.1 cm 4.2 - 5.9 / 3.9 - 5.3 cm LV Systolic Diameter PLAX 2.6 cm IVS Diastolic Thickness 1.6 cm 0.6 - 1.0 / 0.6 - 0.9 cm IVS Systolic Thickness 1.7 cm LVPW Diastolic Thickness 1.5 cm 0.6 - 1.0 / 0.6 - 0.9 cm LVPW Systolic Thickness 1.7 cm LVOT Diameter 2.0 cm LV Ejection Fraction 2D Teich 65.9 % LV Ejection Fraction MOD 2C 54.7 % LV Ejection Fraction 2C AL 55.3 % LA Diameter 3.5 cm LA Width 3.8 cm LA Height 5.6 cm RA Width 4.2 cm RA Height 5.4 cm Aorta at Sinotubular Diameter 2.9 cm IVC Diameter 1.8 cm M-MODE Aortic Annulus Diameter 3.5 cm LA Ao Ratio MM 1.0 DOPPLER AV Peak Velocity 140.0 cm/s LVOT Peak Velocity 95.0 cm/s AV Area Cont Eq vti 2.4 cm squared AV Area Cont Eq pk 2.2 cm squared TR Peak Velocity 238.3 cm/s TR Peak Gradient 22.7 mmHg TV Peak E Velocity 50.0 cm/s Right Atrial Pressure 5.0 mmHg Pulmonary Artery Systolic Pressu 27.7 mmHg FINDINGS Left Ventricle Normal left ventricular size and systolic function, EF 62 %. No regional wall motion abnormalities. Right Ventricle Possibly of normal size Right Atrium Right atrium not well visualized. Left Atrium Possibly of normal size Mitral Valve Morphology could not be delineated well Aortic Valve Trace aortic valve regurgitation. Tricuspid Valve Morphology could not be delineated well Pulmonic Valve Pulmonic valve not well visualized. Pericardium No pericardial effusion. Aorta Normal aortic annulus size. IVC Normal inferior vena cava. CONCLUSIONS Normal left ventricular size and systolic function, EF 62 %. No regional wall motion abnormalities. Technically difficult study because of poor ultrasonic window. Optison was used for endocardial delineation and ejection fraction estimation Trace aortic valve regurgitation. There is no pericardial effusion. No similar previous studies are available for comparison Dr Seema Brown MD [facility] (Electronically Signed) Final Date: 22 January 2023 09:47 S
[2023-01-21 21:35] LABS: Troponin 5 2HR 10.53 ng/L (0-15)
--- NOTE | 2023-01-21 21:40 | PM.CONSULT ---
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 In the emergency room he was found to be in atrial flutter rapid ventricular rate. He was given IV Cardizem which converted the rhythm into sinus. He was sent home with metoprolol 25 mg p.o. twice daily and Eliquis 5 mg p.o. twice daily. He came back to the emergency room last night with another episode of atrial flutter. Apparently he had some caffeine prior to this episode. Again he was given IV Cardizem and the rhythm was converted to sinus. He was sent home on the same medications as before. This evening he is coming back for the third time with a similar complaints. This time also he was found to be in ectopic atrial rhythm with rapid ventricular rate. He is mainly complaining of palpitations. No dizziness or syncopal episode. He has some occasional sharp pains lasting for few seconds. No other associated symptoms or radiation of pain. He has no history for hypertension, diabetes or dyslipidemia. No history for coronary disease, myocardial infarction or congestive heart failure. Approximately 10 years ago, he was having palpitations. He was seen by a guard captain at that time and was placed on some medication. Name of the medicine is not known. According to the patient, he took the medications for a year and then he took himself off of the medication. He has been doing okay with no recurrence of the symptoms up until last Wednesday. He has no family history for any premature coronary disease or any cardiac arrhythmia. Denies any smoking abuse or alcohol abuse. Review of Systems Narrative: CONSTITUTIONAL: No fever or chills. EYES: No blurring of vision or other visual disturbances lately. ENT: No hoarseness of voice, auditory disturbances or sore throat. CARDIOVASCULAR: As mentioned above. RESPIRATORY: No significant cough. GASTROINTESTINAL: No hematemesis or melena. GENITOURINARY: No dysuria or hematuria. INTEGUMENTARY: No skin rashes or history of skin cancer. NEURO: No transient ischemic attacks or amaurosis. PSYCHIATRIC: No history of psychosis or major depression. HEMATOLOGIC: No bleeding disorders or significant anemia. ENDOCRINE: No history of polyuria or polydipsia. MUSCULOSKELETAL: No recent joint pain or swelling. ALLERGY/IMMUNOLOGY: As mentioned above. Medications/Allergies Home Medications Medication Instructions Recorded Confirmed Last Taken Type apixaban 5 mg tablet (Eliquis) 5 mg PO BID #60 tabs 01/18/23 01/21/23 01/21/23 Rx metoprolol tartrate 25 mg tablet 25 mg PO BID #60 tabs 01/18/23 01/21/23 01/21/23 Rx aspirin 81 mg chewable tablet 81 mg PO DAILY 01/21/23 01/21/23 01/20/23 History Allergies Allergy/AdvReac Type Severity Reaction Status Date / Time No Known Allergies Allergy Verified 01/21/23 17:14 PFSH Acute PFSH: Medical History No pertinent past medical history Social History Substance/Drug Use: never Vitals/I&O/Wt Last Vital Signs Temp 97.5 F L 01/21/23 17:10 Pulse 48 L 01/21/23 20:23 Resp 19 H 01/21/23 20:23 BP 123/78 01/21/23 20:23 Pulse Ox 97 01/21/23 19:16 O2 Del Method 01/21/23 18:01 Weight last 48 hrs Weight 252 lb Physical Exam Narrative: GENERAL: The patient is alert and oriented times three. Not in any acute distress. Obese HEENT: No significant pallor, icterus or lymphadenopathy.Oral cavity: There are no mucous membrane lesions. NECK: Trachea appears to be central. No masses noted. No JVD or thyromegaly appreciated. RESPIRATORY: Chest is symmetrical. No intercostals muscle retraction or any accessory muscle activation. There is no chest wall tenderness. Breath sounds are heard bilaterally. No rales or rhonchi heard. No evidence of any consolidation. BREASTS: Deferred. HEART: The heart sounds are normal. No S3 or S4. No significant murmurs. No pericardial rub ABDOMEN: No vessel pulsations or distention. No tenderness. No organomegaly appreciated. Bowel sounds are normally heard. : Deferred. RECTAL: Deferred. LYMPHATIC: No lymphadenopathy noted in the neck. EXTREMITIES: No edema or cyanosis. No clubbing. MUSCULOSKELETAL: No acute joint deformities or swelling SKIN: There are no significant rashes or ecchymosis NEUROPSYCHIATRIC: The patient is alert and oriented x3. Appears to be in a good mood. No tremors or rigidity noted. Data 01/21/23 18:21 01/21/23 18:21 Other Labs: Laboratory Last Values WBC 7.9 10^3/uL (4.0-10.0) 01/21/23 18: RBC 5.16 10^6/uL (4.1-5.3) 01/21/23 18: Hgb 14.9 g/dL (11.7-16.6) 01/21/23 18: Hct 44.9 % (42.0-52.0) 01/21/23 18: MCV 87.0 fl (80-94) 01/21/23 18: MCH 28.9 pg (28.0-34.0) 01/21/23 18: MCHC 33.2 g/dL (30.0-36.0) 01/21/23 18: RDW 13.1 % (12.1-15.1) 01/21/23 18: Plt Count 222 10^3/cmm (130-400) 01/21/23 18: MPV 10.7 fL (7.4-10.4) H 01/21/23 18: Neut % (Auto) 44.8 % 01/21/23 18: Lymph % (Auto) 39.8 % 01/21/23 18:21 [place] % (Auto) 8.2 % 01/21/23 18:21 Eos % (Auto) 5.5 % 01/21/23 18: Baso % (Auto) 1.4 % 01/21/23 18:21 Neut # (Auto) 3.55 10^3/uL (1.8-7.7) 01/21/23 18: Lymph # (Auto) 3.2 10^3/uL (0.8-4.8) 01/21/23 18:21 [place] # (Auto) 0.7 10^3/uL (0.2-0.9) 01/21/23 18:21 Eos # (Auto) 0.4 10^3/uL (0.0-0.8) 01/21/23 18:21 Baso # (Auto) 0.1 10^3/uL (0.0-0.1) 01/21/23 18:21 Nucleated RBC % (auto) 0 % 01/21/23 18:21 Nucleated RBCs # 0.0 /100WBC 01/21/23 18:21 PT 14.80 SECONDS (12.1-14.9) 01/21/23 18:21 INR 1.12 (0.8-1.2) 01/21/23 18:21 Sodium 141 mmol/L (136-145) 01/21/23 18:21 Potassium 4.8 mmol/L (3.5-5.1) 01/21/23 18:21 Chloride 106 mmol/L (98-107) 01/21/23 18:21 Carbon Dioxide 20 mmol/L (22-29) L 01/21/23 18:21 Anion Gap 19.8 (5-19) H 01/21/23 18:21 BUN 16 mg/dL (8-23) 01/21/23 18:21 Creatinine 0.7 mg/dL (0.7-1.2) 01/21/23 18:21 GFR Calculation 111.5 mL/min (90-130) 01/21/23 18:21 Glucose 114 mg/dL (65-115) 01/21/23 18:21 Calculated Osmolality 294 mOsm/kg (285-295) 01/21/23 18:21 Calcium 8.8 mg/dL (8.5-10.5) 01/21/23 18:21 Total Bilirubin 0.4 mg/dL (0.15-1.2) 01/21/23 18:21 AST 17 U/L (0-40) 01/21/23 18:21 ALT 17 U/L (0-41) 01/21/23 18:21 Alkaline Phosphatase 63 U/L (40-130) 01/21/23 18:21 Troponin T Baseline 11 ng/L (0-15) 01/21/23 18:21 Troponin T 120 Minute 10.53 ng/L (0-15) 01/21/23 21:00 Total Protein 6.5 g/dL (6.6-8.7) L 01/21/23 18:21 Albumin 4.0 g/dL (3.5-5.2) 01/21/23 18:21 Globulin 2.5 g/dL (1.3-4.6) 01/21/23 18:21 EKG 1: My Interpretation: EKG shows possible ectopic atrial tachycardia with a heart rate of 129 bpm . Some nonspecific T wave changes A&P Assessment and plan (1) Ectopic atrial tachycardia: For further management of his condition, I may start him on flecainide 50 mg p.o. twice daily. He needs to be closely monitored on telemetry. I may hold off on the amiodarone and metoprolol at this time An echocardiogram would be helpful to evaluate the LV function and rule out other pathology. (2) Chest pain: The chest pain could be from the ventricular arrhythmia. Patient was found to have few PVCs on the monitor. Considering the possibility of underlying coronary disease, it may be appropriate to go ahead and do a Myocardial perfusion imaging tomorrow to further evaluate his symptoms. Plan Based on the results of the above, further recommendations will be made. Thank you for the opportunity to evaluate this patient and make these recommendations Consult Attestations Medical Necessity Statement: Patient requires continued hospital stay for close monitoring and further management Coding Level of Care Code 69697 Diagnoses Ectopic atrial tachycardia I47.1 Chest pain R07.9
[2023-01-21 22:14] LABS: Troponin 5 2HR Delta -0.47 ABS# (0-10)
--- NOTE | 2023-01-21 22:56 | ECG_ITS ---
[facility] Test Date: 2023-01-22 Pat Name: Trace Benavides Department: Room: 111 Gender: Male Facilities Locator: : 1950 Requested By: Seema Brown Order Number: [id number] Paolo MD: Seema Brown M.D. Interpretive Statements NAME OF STUDY: LEXISCAN SESTAMIBI STRESS TEST INDICATION: Chest Pain, PROCEDURE: At the baseline, the EKG revealed possible atrial flutter with a fixed block. The baseline heart was 126 bpm with a blood pressue of 122/90 mm of Hg Lexiscan was infused over a period of 20 seconds. A total of 0.4 milligrams of Lexiscan was infused. The stress phase was continued for a total of 5 minutes. Heart rate at the end of the stress phase was bpm with a blood pressure mm of Hg. The EKG showed episode of mild multifocal atrial rhythm with PVCs and normal sinus rhythm. Sestamibi was injected 20 seconds after the Lexiscan infusion. Heart rate at the end of the recovery phase was 59 bpm with a blood pressure of 125/68 mm of Hg. CONCLUSION: 1. No significant EKG changes with the LexiScan infusion 2. No LexiScan induced chest pain or cardiac arrhythmia 3. Normal blood pressure and heart rate response 4. Sestamibi/sestamibi perfusion scan pending; see separate report. Electronically Signed On 01-23-2023 17:00:06 AVIONICS MANAGER by Seema Brown M.D. [email or web address]
[2023-01-21] MEDS: enoxaparin 120 mg/0.8 mL Syringe 115 MG SUBCUT (23:49)
[2023-01-22] VITALS (106 sets, daily range): BP systolic 125–149; BP diastolic 68–111; PULSE 46–130; RESP 8–28; TEMP 36.1–36.4; O2SAT 77–100
--- NOTE | 2023-01-22 00:59 | ECG_ITS ---
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 Measurements Intervals [place] Rate: 54 P: 40 PA: 169 QRS: 32 QRSD: 110 T: 27 QT: 483 QTc: 458 Interpretive Statements SINUS BRADYCARDIA WITH OCCASIONAL VENTRICULAR PREMATURE COMPLEXES WITH OCCASIONAL SUPRAVENTRICULAR PREMATURE COMPLEXES MODERATE T-WAVE ABNORMALITY, CONSIDER LATERAL ISCHEMIA [-0.1+ mV T-WAVE IN I/aVL/V5/V6] Compared to ECG 01/21/2023 19:54:35 Atrial fibrillation no longer present Aberrant conduction of supraventricular beat(s) no longer present Right bundle-branch block no longer present Left anterior fascicular block no longer present T-wave abnormality still present Possible ischemia still present Electronically Signed On 01-22-2023 21:53:33 TRAIN MASTER by Seema Brown M.D. [id number]
[2023-01-22 02:04] LABS: Basophils # 0.1 10^3/uL (0.0-0.1); Basophils % 1.7 %; Eosinophils # 0.5 10^3/uL (0.0-0.8); Eosinophils % 6.8 %; Hematocrit 41.1 % (42.0-52.0); Hemoglobin 13.3 g/dL (11.7-16.6); Lymphocytes # 3.2 10^3/uL (0.8-4.8); Lymphocytes % 44.5 %; Mean Corpuscular HGB Conc 32.4 g/dL (30.0-36.0); Mean Corpuscular Hemoglobin 28.8 pg (28.0-34.0); Mean Platelet Volume 10.8 fL (7.4-10.4); Monocytes # 0.6 10^3/uL (0.2-0.9); Monocytes % 8.3 %; Neutrophils # 2.76 10^3/uL (1.8-7.7); Neutrophils % 38.3 %; Nucleated Red Blood Cells % 0 %; Platelet Count 195 10^3/cmm (130-400); Red Blood Count 4.62 10^6/uL (4.1-5.3); Red Cell Distribution Width 13.2 % (12.1-15.1); White Blood Count 7.2 10^3/uL (4.0-10.0)
[2023-01-22 02:32] LABS: Troponin 5 6HR 14.72 ng/L (0-15)
[2023-01-22 02:39] LABS: Alanine Aminotransferase 16 U/L (0-41); Albumin Level 3.5 g/dL (3.5-5.2); Alkaline Phosphatase 54 U/L (40-130); Aspartate Amino Transferase 16 U/L (0-40); Blood Urea Nitrogen 14 mg/dL (8-23); Calcium 8.2 mg/dL (8.5-10.5); Carbon Dioxide 26 mmol/L (22-29); Chloride 106 mmol/L (98-107); Globulin 2.7 g/dL (1.3-4.6); Glomerular Filtration Rate 111.5 mL/min (90-130); Glucose 104 mg/dL (65-115); Magnesium 2.2 mg/dL (1.7-2.3); Osmolality Calculated 293 mOsm/kg (285-295); Sodium 141 mmol/L (136-145); Thyroid Stimulating Hormone 5.97 uIU/mL (0.27-4.20); Total Bilirubin 0.5 mg/dL (0.15-1.2); Total Protein 6.2 g/dL (6.6-8.7)
[2023-01-22 03:02] LABS: Troponin 5 6HR Delta -4.19 ng/L (0-12)
[2023-01-22] MEDS: perflutren protein-a microsphr 0.22 mg/mL SDV 3 mL IV (05:59)
[2023-01-22] MEDS: flecainide 100 mg Tablet 50 MG PO ×2 (06:53→09:10)
--- NOTE | 2023-01-22 06:55 | PC.NURSE ---
Called and spoke with regarding patient going back into rapid afib rate 120s. Has been going into afib throughout the night but only lasts for 1-2min. This morning went into afib around 6:15 and has sustained for 15min. orderd to hold am dose of flecanide and give 10mg Cadizem IVP. When nurse went into give patient the Cardizem he had went back into sinus chris rate 40-50s. Messaged again regarding rythm change and was told to not give Cardizem, give flecanide, and get EKG.
[2023-01-22] MEDS: regadenoson 0.4 Mg/5 ml Syringe IVP (08:05)
[2023-01-22] MEDS: aspirin 81 mg Chew Tablet PO (09:10)
--- NOTE | 2023-01-22 09:11 | ECG_ITS ---
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 Measurements Intervals [place] Rate: 53 P: 50 [place]: 162 QRS: -35 QRSD: 113 T: -51 QT: 437 QTc: 413 Interpretive Statements SINUS BRADYCARDIA WITH OCCASIONAL VENTRICULAR PREMATURE COMPLEXES LEFT AXIS DEVIATION [QRS AXIS < -30] MODERATE INTRAVENTRICULAR CONDUCTION DELAY [110+ ms QRS DURATION] NONSPECIFIC ST & T-WAVE ABNORMALITY Compared to ECG 01/22/2023 00:59:15 Left-axis deviation now present Intraventricular conduction delay now present Possible ischemia no longer present T-wave abnormality still present Electronically Signed On 01-22-2023 21:54:02 ONLINE PRODUCER by Seema Brown M.D. [id number]
[2023-01-22] MEDS: enoxaparin 120 mg/0.8 mL Syringe 115 MG SUBCUT ×2 (09:26→21:44)
--- NOTE | 2023-01-22 10:53 | PC.CHAP ---
Pastoral Care Encounter/Spiritual Assessment Type of Contact [] Declined sql report analyst visit [] Patient/Family/Request visit [] Outpatient visit [] Follow-up visit [] Physician referral [] Code/Alert [x] Routine visit [] Staff referral [] Actively dying [] Patient sleeping [] Family support [] [x] Out of room [] Palliative care [] [] Receiving care in room [] Pre-surgical visit [] Trauma [] Long length of stay [] ICU visit [] Other: Relational/Emotional Strength [] Patient feels connected with others/family/visitors/staff [] Distress [] Loneliness/isolation [] Abandonment Spirituality of Patient [] Person of Kim [] Attends Anabaptism of their Kim [] Believes in Prayer [] Reads Bible or Yarsani materials [] There are Spiritual issues to be addressed 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 Interventions [x] Prayer [] Active listening [] Non-anxious presence [] Spiritual/emotional support [] Crisis/trauma care [] Spiritual counseling [] Bereavement support [] Provided bereavement packet [] Provided Bible/devotional materials [] Provided toy/stuffed animal, coloring book to patient or family member [] Provided Communion [] Anointing/[place] [] Salvation [] Completed spiritual assessment [] Other: Impact on Illness or Injury [] Angry [] Fearful [] Anxious [] Often cries [] Exhaustion [] Unable to work [] Unable to attend pentecostalism [] Unable to walk/stand [] Unable to read [] Unable to drive [] Unable to eat/drink [] Unable to sleep [] Unable to be with family [] Patient intubated [] Other: Summary Time spent with patient
--- NOTE | 2023-01-22 11:38 | PC.NURSE ---
spoke with Dr rodney to inform that patients stress test was complete Instructions received to start cardiac diet
--- NOTE | 2023-01-22 13:46 | P.PN_ITS ---
Subjective Subjective: Patient underwent stress test this morning which showed low probability of coronary ischemia. No current complaints. Bradycardia noted on telemetry with heart rate ranging between 50 to 56 bpm. Denies any current chest pain dyspnea or palpitations. 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 twice daily # A flutter with RVR Currently EKG showing ectopic atrial tachycardia Patient has been started on flecainide this admission by cardiology. Appreciate recommendations, continue close monitoring on telemetry with initiation of new medications. Multiple PVCs Currently bradycardia ranging between 50 to 56 bpm, asymptomatic. Blood pressure is maintained. Patient's mentation is normal. He denies any complaints of chest pain dyspnea or palpitations. #Chest pain Patient underwent stress test this morning which showed low probability of coronary ischemia. Moderate area of persistent decreased uptake was seen in the inferior and the inferolateral regions suggesting myocardial scarring versus attenuation artifact. LVEF of 59%. No gross wall motion abnormalities. Follow 2D echo Troponin series unremarkable. Currently on therapeutic anticoagulation with Lovenox, will plan to transition back to [facility] at discharge. Appreciate cardiology recommendations CODE STATUS: Full code DVT prophylaxis: On Lovenox Attestations Medical Necessity Statement*: Status post stress test today, telemetry monitoring for new medication onset Coding Level of Care Code Acute Code for Chg Fwd Moderate MDM includes number and complexity of problems actively addressed during encounter, amount and/or complexity of data reviewed/ordered and described risk of complication, morbidity or mortality of management as documented Diagnoses Atrial flutter with rapid ventricular response I48.92
--- NOTE | 2023-01-22 15:23 | P.PN_ITS ---
Subjective Subjective: Patient was having episodes of ectopic atrial tachycardia/flutter on the telemetry. In the stress lab, he was found to be in ectopic atrial tachycardia with a heart rate 128 bpm. With the IV Lexiscan, the rhythm got converted to normal sinus Medications: Medication Review Details: Current Medications Acetaminophen (Acetaminophen 325 Mg Tablet) 650 mg PO Q6H PRN PRN Reason: Mild/Mod Pain Or Temp >/= 101 Aminophylline (Aminophylline 25 Mg/Ml Sdv 10 Ml) 25 mg IVP Q2M PRN PRN Reason: see dose instructions Stop: 01/23/23 07:12 Aspirin (Aspirin 81 Mg Chew Tablet) 81 mg PO DAILY [facility] Last Admin: 01/22/23 09:10 Dose: 81 mg Bisacodyl (Bisacodyl 5 Mg Tablet) 10 mg PO DAILY PRN; Protocol PRN Reason: Constipation (see protocol) Enoxaparin Sodium (Enoxaparin 120 Mg/0.8 Ml Syringe) 115 mg SUBCUT Q12H [facility] Last Admin: 01/22/23 09:26 Dose: 115 mg Flecainide Acetate (Flecainide 100 Mg Tablet) 50 mg PO Q12H [facility] Last Admin: 01/22/23 06:53 Dose: 50 mg Nitroglycerin (Nitroglycerin 0.4 Mg Sublingual Tablet) 0.4 mg SUBLINGUAL Q5M PRN PRN Reason: CHEST PAIN Stop: 01/23/23 07:12 Ondansetron HCl (Ondansetron 2 Mg/Ml Sdv 2 Ml) 4 mg IVP Q8H PRN PRN Reason: vomiting, or N/V if npo Ondansetron HCl (Ondansetron 2 Mg/Ml Sdv 2 Ml) 4 mg IVP Q2M PRN PRN Reason: NAUSEA Vitals/I&O/Wt Last Vital Signs Temp 97.5 F L 01/22/23 04:00 Pulse 56 L 01/22/23 12:45 Resp 13 01/22/23 12:45 BP 138/99 01/22/23 12:50 Pulse Ox 96 01/22/23 12:45 O2 Del Method 01/22/23 04:00 01/22/23 01/22/23 01/22/23 06:59 14:59 22:59 Intake Total 100 / 100 0 / 0 Balance 100 / 100 0 / 0 Weight last 48 hrs Weight 252 lb Weight 252 lb Physical Exam Narrative: GENERAL: The patient is alert and oriented times three. Not in any acute distress. HEENT: No significant pallor, icterus or lymphadenopathy.Oral cavity: There are no mucous membrane lesions. NECK: Trachea appears to be central. No masses noted. No JVD or thyromegaly appreciated. RESPIRATORY: Chest is symmetrical. No intercostals muscle retraction or any accessory muscle activation. There is no chest wall tenderness. Breath sounds are heard bilaterally. No rales or rhonchi heard. No evidence of any consol idation. BREASTS: Deferred. HEART: The heart sounds are normal. No S3 or S4. No significant murmurs. No pericardial rub ABDOMEN: No vessel pulsations or distention. No tenderness. No organomegaly appreciated. Bowel sounds are normally heard. : Deferred. RECTAL: Deferred. LYMPHATIC: No lymphadenopathy noted in the neck. EXTREMITIES: No edema or cyanosis. No clubbing. MUSCULOSKELETAL: No acute joint deformities or swelling SKIN: There are no significant rashes or ecchymosis NEUROPSYCHIATRIC: The patient is alert and oriented x3. Appears to be in a good mood. No tremors or rigidity noted. Data 01/22/23 01:28 01/22/23 01:28 Myocardial perfusion imaging: My impression: Low probability for coronary ischemia A&P Assessment and plan (1) Ectopic atrial tachycardia: I may increase the dose of the flecainide to 100 mg p.o. twice daily. He is closely monitored on telemetry. He has been having episodes of bradycardia- could be due to beta-desiree. Possibility of underlying sinus node dysfunction also is a consideration. (2) Chest pain: A Myocardial perfusion imaging results are discussed with the patient in detail. Patient understood this well and had no further questions. Most likely related to ventricular arrhythmia. The implication of the test findings were discussed in detail. Since the previous scan is unremarkable, patient may not require any specific intervention at this point. Plan EKG in the morning. Close monitoring on telemetry. If the pa I may see him in the office in a month tient continues to remain stable, may be discharged home tomorrow Please make an appointment at [facility] to be seen by nurse practitioner in 1 week. I may see him in the office in 1 month. Attestations Medical Necessity Statement*: Patient requires continued hospital stay for close monitoring and further management Coding Level of Care Code 26927 Diagnoses Ectopic atrial tachycardia I47.1 Chest pain R07.9
[2023-01-22] MEDS: flecainide 100 mg Tablet PO (17:12)
--- NOTE | 2023-01-22 22:56 | NMCV_ITS ---
NM radha perf SPECT r/s* [id number] Trace Benavides Age: 72 Gender: M : 1950 Exam Date: 01/22/2023 06:57 Ordering Phys: Seema Brown MD ([email or web address]) Technologist: MAHIN Arriaga Exam Location: [facility] Indications: CHEST PAIN STRESS TEST [facility] IMAGE PROTOCOL Rest/Stress 1 Lexiscan Day Radiopharmaceutical Dose (mCi) Administration Site Administered by Rest: Tc-99m 10.8 IV MAHIN Longo Sestamibi Stress:Tc-99m 32.9 IV MAHIN Longo Sestamibi Rest: 22-Jan-2023 60 Discovery 630 Stress: 22-Jan-2023 30 Discovery 630 0.4mg Lexiscan. Images obtained in supine and prone position. SPECT RESULTS Technical Quality: Excellent Raw Data Analysis: Normal Image Corrections: No attenuation or motion correction applied Summed Stress Score: 5 Summed Rest Score: 6 Summed Difference Score: 0 PERFUSION FINDINGS Moderate area of moderately decreased tracer uptake was noted in the basal, mid and apical inferior regions with no significant reversibility. A small area of decreased tracer uptake also was noted in the inferolateral region, with no significant reversibility FUNCTIONAL RESULTS (calculated via Gated SPECT) Stress Image LV EF (%): 59 Stress EDV (mL):107 TID: 0.8 Stress ESV (mL):44 FUNCTIONAL FINDINGS: Segmental wall motion analysis revealing no gross wall motion abnormalities IMPRESSIONS 1. Myocardial perfusion imaging revealing moderate area of persistent decreased tracer uptake in the inferior and inferolateral regions suggesting myocardial scarring versus attenuation artifact. 2. Normal LV ejection fraction 59% 3. LV wall motion analysis revealing no gross wall motion abnormalities. 4. LV volume, upper limit of wppfew-umo-caiashna volume of 44 mL Low probability for coronary ischemia, based on the above findings Dr Seema Brown MD FACC (Electronically Signed) Final Date: 22 January 2023 10:02 S
[2023-01-23] VITALS: BP 100/57; PULSE 96; RESP 24; TEMP 36.4; O2SAT 94
--- NOTE | 2023-01-23 02:21 | ECG_ITS ---
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 Measurements Intervals [place] Rate: 122 P: 0 ME: 0 QRS: -66 QRSD: 215 T: 0 QT: 355 QTc: 507 Interpretive Statements ATRIAL FLUTTER/TACHYCARDIA WITH RAPID VENTRICULAR RESPONSE RIGHT BUNDLE BRANCH BLOCK [120+ ms QRS DURATION, UPRIGHT V1, 40+ ms S IN I/aVL/V4/V5/V6] LEFT ANTERIOR FASCICULAR BLOCK [QRS AXIS <= -45, QR IN I, RS IN II] POSSIBLE SEPTAL MYOCARDIAL INFARCTION , PROBABLY OLD [30 ms Q WAVE IN V1/V2] Compared to ECG 01/22/2023 09:11:01 Right bundle-branch block now present Left anterior fascicular block now present Ventricular premature complex(es) no longer present Left-axis deviation no longer present Intraventricular conduction delay no longer present T-wave abnormality no longer present Electronically Signed On 01-23-2023 16:08:47 DRUM SEALER by Guillermo Bueno M.D. [id number]
[2023-01-23 03:17] LABS: Basophils # 0.1 10^3/uL (0.0-0.1); Basophils % 1.6 %; Eosinophils # 0.5 10^3/uL (0.0-0.8); Eosinophils % 7.3 %; Hematocrit 44.5 % (42.0-52.0); Hemoglobin 14.6 g/dL (11.7-16.6); Lymphocytes # 2.4 10^3/uL (0.8-4.8); Lymphocytes % 37.3 %; Mean Corpuscular HGB Conc 32.8 g/dL (30.0-36.0); Mean Corpuscular Hemoglobin 29.1 pg (28.0-34.0); Mean Corpuscular Volume 88.6 fl (80-94); Mean Platelet Volume 10.7 fL (7.4-10.4); Monocytes # 0.7 10^3/uL (0.2-0.9); Monocytes % 10.2 %; Neutrophils # 2.79 10^3/uL (1.8-7.7); Neutrophils % 43.3 %; Nucleated Red Blood Cells % 0 %; Platelet Count 214 10^3/cmm (130-400); Red Blood Count 5.02 10^6/uL (4.1-5.3); Red Cell Distribution Width 13.1 % (12.1-15.1); White Blood Count 6.4 10^3/uL (4.0-10.0)
[2023-01-23 03:44] LABS: Alanine Aminotransferase 15 U/L (0-41); Albumin Level 3.6 g/dL (3.5-5.2); Alkaline Phosphatase 61 U/L (40-130); Anion Gap 13.4 (5-19); Aspartate Amino Transferase 20 U/L (0-40); Blood Urea Nitrogen 11 mg/dL (8-23); Calcium 8.7 mg/dL (8.5-10.5); Carbon Dioxide 26 mmol/L (22-29); Chloride 104 mmol/L (98-107); Glomerular Filtration Rate 95.6 mL/min (90-130); Glucose 115 mg/dL (65-115); Magnesium 2.1 mg/dL (1.7-2.3); Osmolality Calculated 288 mOsm/kg (285-295); Potassium 4.4 mmol/L (3.5-5.1); Sodium 139 mmol/L (136-145); Total Bilirubin 0.7 mg/dL (0.15-1.2); Total Protein 6.6 g/dL (6.6-8.7)
[2023-01-23 04:00] VITALS: BP 122/92; PULSE 130; RESP 24; TEMP 36.6; O2SAT 98
--- NOTE | 2023-01-23 04:15 | PC.NURSE ---
Messaged regarding patient going into afib RVR, obtained ekG. Rate in 120s. ordered to give PO flecanide early at this time.
[2023-01-23] MEDS: flecainide 100 mg Tablet PO (04:21)
[2023-01-23 06:00] VITALS: PULSE 53
--- NOTE | 2023-01-23 06:00 | ECG_ITS ---
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 Measurements Intervals [place] Rate: 57 P: 49 [place]: 178 QRS: -61 QRSD: 134 T: 77 QT: 426 QTc: 418 Interpretive Statements SINUS BRADYCARDIA INTRAVENTRICULAR CONDUCTION DELAY [130+ ms QRS DURATION] Compared to ECG 01/23/2023 02:22:28 Intraventricular conduction delay now present Atrial flutter no longer present Right bundle-branch block no longer present Left anterior fascicular block no longer present Myocardial infarct finding no longer present Electronically Signed On 01-23-2023 16:09:34 MARKET SUPERINTENDENT by Guillermo Bueno M.D. [id number]
--- NOTE | 2023-01-23 07:27 | P.PN_ITS ---
Subjective Subjective: Patient had episode of tachycardia last night. No chest pain. Vitals/I&O/Wt Last Vital Signs Temp 97.8 F 01/23/23 04:00 Pulse 130 H 01/23/23 04:00 Resp 24 H 01/23/23 04:00 BP 122/92 01/23/23 04:00 Pulse Ox 98 01/23/23 04:00 O2 Del Method 01/23/23 04:00 01/22/23 01/23/23 01/23/23 22:59 06:59 14:59 Intake Total 240 / 240 840 / 1080 Balance 240 / 240 840 / 1080 Weight last 48 hrs Weight 259 lb 8 oz Weight 252 lb Weight 252 lb Physical Exam Narrative: GENERAL: Patient is alert, awake and oriented x3. [] NECK: No jugular vein distension. [] HEENT: No cyanosis. No icterus. No pallor. [] HEART: Regular S1 and S2. No murmur, rub or gallop. [] LUNGS: Clear to auscultate bilaterally. [] CENTRAL NERVOUS SYSTEM: Grossly nonfocal. [] EXTREMITIES: Lower extremities with 1+ edema bilaterally. Pulses palpable in the lower extremities, both dorsalis pedis and posterior tibial. [] Data 01/23/23 03:00 01/23/23 03:00 A&P Assessment and plan (1) Ectopic atrial tachycardia: Continue flecainide 100 mg twice daily. Had episode of tachycardia last night. We will arrange for outpatient event monitor. Metoprolol only as needed as develops bradycardia. (2) Chest pain: Stress test results discussed with the patient by Dr. Brown Plan Patient is stable for discharge from cardiology standpoint. Attestations Medical Necessity Statement*: Care expected to cross 2 midnights. Coding Level of Care Code Acute Code for [facility] Diagnoses Ectopic atrial tachycardia I47.1 Chest pain R07.9
[2023-01-23 08:42] VITALS: BP 151/123; PULSE 68; RESP 24; O2SAT 96
--- NOTE | 2023-01-23 09:15 | PM.DCS ---
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 In the emergency room he was found to be in atrial flutter rapid ventricular rate.? He was given IV Cardizem which converted the rhythm into sinus.? He was sent home with metoprolol 25 mg p.o. twice daily and Eliquis 5 mg p.o. twice daily.? He came back to the emergency room on this admission for third on January 21, 2023 with a third episode of ectopic atrial rhythm with rapid ventricular rate.? He is mainly complaining of palpitations.? No dizziness or syncopal episode.? He has some occasional sharp pains lasting for few seconds.? No other associated symptoms or radiation of pain. He was admitted to the hospital and monitored on telemetry. Metoprolol was discontinued and he was instead started on flecainide. He underwent a stress test due to complaints of chest pain, there was low probability of ischemic disease overall. Changes were thought to be related to ventricular arrhythmia. Per cardiology recommendations he is being discharged today on flecainide 100 mg p.o. every 12 hours and metoprolol 25 mg as needed for heart rate greater than 130. A Holter monitor will be arranged to be placed next week since we cannot do it over the weekend (today is Wednesday). Follow-up with Lorenza Pereyra nurse practitioner in [address] Brown in 1 month. At the time of discharge she is in sinus rhythm with heart rate at 68 bpm Discharge Data Studies Completed and Pending Completed Studies During Hospitalization Category Date Time Status Cardiac Stress Test MIBI [Sestamibi Stress Test Request Exams 01/21/23 22:56 Draft ] Routine XR chest 1V portable [id number] Stat Exams 01/21/23 18:02 Completed NM rdaha perf SPECT r/s* [id number] Routine Nuc Med 01/22/23 22:56 Completed CV. echo wo/w contrast [id number] Stat Ultrasound 01/21/23 20:56 Completed Pending at discharge Category Date Time Status Cardiac Stress Test MIBI [Sestamibi Stress Test Request Exams 01/21/23 22:56 Ordered ] Routine Complete Blood Count w/Auto AM LABS Lab 01/24/23 04:00 Ordered Comprehensive Metabolic Panel AM LABS Lab 01/24/23 04:00 Ordered Magnesium AM LABS Lab 01/24/23 04:00 Ordered Radiology Impressions Chest X-Ray 01/21/23 18:02 IMPRESSION: Left lower lobe atelectasis versus minimal infiltrate. Laboratory Results WBC 6.4 10^3/uL (4.0-10.0) 01/23/23 03:00 RBC 5.02 10^6/uL (4.1-5.3) 01/23/23 03:00 Hgb 14.6 g/dL (11.7-16.6) 01/23/23 03:00 Hct 44.5 % (42.0-52.0) 01/23/23 03:00 MCV 88.6 fl (80-94) 01/23/23 03:00 MCH 29.1 pg (28.0-34.0) 01/23/23 03:00 MCHC 32.8 g/dL (30.0-36.0) 01/23/23 03:00 RDW 13.1 % (12.1-15.1) 01/23/23 03:00 Plt Count 214 10^3/cmm (130-400) 01/23/23 03:00 MPV 10.7 fL (7.4-10.4) H 01/23/23 03:00 Neut % (Auto) 43.3 % 01/23/23 03:00 Lymph % (Auto) 37.3 % 01/23/23 03:00 [place] % (Auto) 10.2 % 01/23/23 03:00 Eos % (Auto) 7.3 % 01/23/23 03:00 Baso % (Auto) 1.6 % 01/23/23 03:00 Neut # (Auto) 2.79 10^3/uL (1.8-7.7) 01/23/23 03:00 Lymph # (Auto) 2.4 10^3/uL (0.8-4.8) 01/23/23 03:00 [place] # (Auto) 0.7 10^3/uL (0.2-0.9) 01/23/23 03:00 Eos # (Auto) 0.5 10^3/uL (0.0-0.8) 01/23/23 03:00 Baso # (Auto) 0.1 10^3/uL (0.0-0.1) 01/23/23 03:00 Nucleated RBC % (auto) 0 % 01/23/23 03:00 Nucleated RBCs # 0.0 /100WBC 01/23/23 03:00 PT 14.80 SECONDS (12.1-14.9) 01/21/23 18:21 INR 1.12 (0.8-1.2) 01/21/23 18:21 Sodium 139 mmol/L (136-145) 01/23/23 03:00 Potassium 4.4 mmol/L (3.5-5.1) 01/23/23 03:00 Chloride 104 mmol/L (98-107) 01/23/23 03:00 Carbon Dioxide 26 mmol/L (22-29) 01/23/23 03:00 Anion Gap 13.4 (5-19) 01/23/23 03:00 BUN 11 mg/dL (8-23) 01/23/23 03:00 Creatinine 0.8 mg/dL (0.7-1.2) 01/23/23 03:00 GFR Calculation 95.6 mL/min (90-130) 01/23/23 03:00 Glucose 115 mg/dL (65-115) 01/23/23 03:00 Calculated Osmolality 288 mOsm/kg (285-295) 01/23/23 03:00 Calcium 8.7 mg/dL (8.5-10.5) 01/23/23 03:00 Magnesium 2.1 mg/dL (1.7-2.3) 01/23/23 03:00 Total Bilirubin 0.7 mg/dL (0.15-1.2) 01/23/23 03:00 AST 20 U/L (0-40) 01/23/23 03:00 ALT 15 U/L (0-41) 01/23/23 03:00 Alkaline Phosphatase 61 U/L (40-130) 01/23/23 03:00 Troponin T Baseline 11 ng/L (0-15) 01/21/23 18:21 Troponin T 120 Minute 10.53 ng/L (0-15) 01/21/23 21:00 Delta Troponin T -0.47 ABS# (0-10) L 01/21/23 21:00 Troponin T Hi Sens 6Hr 14.72 ng/L (0-15) 01/22/23 01:28 Troponin T Hi Sens 6Hr Delta -4.19 ng/L (0-12) L 01/22/23 01:28 Total Protein 6.6 g/dL (6.6-8.7) 01/23/23 03:00 Albumin 3.6 g/dL (3.5-5.2) 01/23/23 03:00 Globulin 3.0 g/dL (1.3-4.6) 01/23/23 03:00 TSH 5.97 uIU/mL (0.27-4.20) H 01/22/23 01:28 Vitals Last Vital Signs Temp 97.8 F 01/23/23 04:00 Pulse 68 01/23/23 08:42 Resp 24 H 01/23/23 08:42 BP 151/123 01/23/23 08:42 Pulse Ox 96 01/23/23 08:42 O2 Del Method 01/23/23 04:00 Discharge Plan Discharge Patient Disposition: Home Condition: Stable Prescriptions: New flecainide 100 mg Tablet 100 mg PO Q12H 30 Days Qty: 60 0RF Continued Eliquis 5 mg tablet 5 mg PO BID Qty: 60 0RF aspirin 81 mg Tablet,Chewable 81 mg PO DAILY Changed metoprolol tartrate 25 mg tablet 25 mg PO DIRECTED PRN (Reason: prn for HR > 130) Qty: 60 0RF Rx Instructions: take only if heart rate > 130 Discharge Orders: Discharge Order (Routine); Ordered 01/23/23 Ordered By: Tabitha Purcell Other Ambulatory Orders: MCT/Event Monitor 30 Days (Routine) Timeframe: 20230125 Facility: [facility] - Location: Radiology Ordered By: Tabitha Purcell Referrals: Seema Brown MD [Primary Care Provider] - 1 month Lorenza Pereyra FNP [Nurse Practitioner] - 1 week Discharge Diet: Cardiac Discharge Activity: Resume usual activity Patient Instructions: Opioid Safety Activity Restrictions/Additional Instructions: Your medications have had a significant change. You have been started on flecainide 100 mg p.o. every 12 hours as a new medication. Stop using metoprolol on a daily basis. Use metoprolol 25 mg 1 tablet only if your heart rate is uncontrolled at more than 130 after taking the flecainide. Call the cardiology office with any change in symptoms. Please cotton picking machine operator your Holter monitor on January 25, 2023. Discharge Attestations Time Spent in Discharge Care*: greater than 30 min Quality Metrics Clinical Quality Measures [ No reported AMI, CVA or VTE this stay] Coding Level of Care Code Acute Code for [facility] Fwd Diagnoses Ectopic atrial tachycardia I47.1 Chest pain R07.9
[2023-01-23] MEDS: aspirin 81 mg Chew Tablet PO (09:20)
[2023-01-23 10:08] VITALS: BP 151/123; PULSE 68; RESP 24; O2SAT 96
[2023-01-23 10:40] VITALS: BP 136/81; PULSE 76
--- NOTE | 2023-01-23 10:40 | PC.NURSE ---
discharge instructions given and explained.pt and spouse verb understanding of instructions.discharged via w/c to exit.spouse to drive pt home
== END 2023-01-23 10:42 | disposition home or self-care (01) ==
LOC: ER 21:24 → CSU 21:24
PROVIDERS: Admitting Provider Internal Medicine; Emergency Provider Emergency Medicine; PCP Nurse Practitioner Family; Visit Provider Student in an Organized Health Care Education/Training Program
DX: I47.1 Supraventricular tachycardia (principal); R07.9 Chest pain, unspecified; I48.92 Unspecified atrial flutter; R00.1 Bradycardia, unspecified; I45.10 Unspecified right bundle-branch block; Z79.82 Long term (current) use of aspirin
CPT/HCPCS: 36415; 71045; 78452; 80053; 83735; 84443; 84484; 85025; 85610; 93005; 93017; 96372; 96374; 99285; A9500; C8929; G0378; J1650; J2785; J3490; Q9956

== ENCOUNTER → 2023-01-27 14:11 | Outpatient (BNVA) | payer MEDICARE, SELFPAY | PROVIDERS: PCP Nurse Practitioner Family; Visit Provider Internal Medicine Cardiovascular Disease | DX: I48.92 Unspecified atrial flutter (principal); I47.1 Supraventricular tachycardia; R07.9 Chest pain, unspecified; Z79.899 Other long term (current) drug therapy; Z79.01 Long term (current) use of anticoagulants | CPT/HCPCS: 93005; 99214 ==

== ENCOUNTER → 2023-08-09 10:03 | Outpatient (BNVA) | payer MEDICARE, SELFPAY | PROVIDERS: PCP Nurse Practitioner Family; Visit Provider Internal Medicine Cardiovascular Disease | DX: I48.92 Unspecified atrial flutter (principal); Z79.899 Other long term (current) drug therapy; I10 Essential (primary) hypertension | CPT/HCPCS: 99214 ==

== ENCOUNTER 2023-10-09 23:42 | Emergency (ER) | payer MEDICARE, SELFPAY ==
[2023-10-09 23:55] VITALS: BP 191/86; PULSE 60; RESP 18; O2SAT 96
--- NOTE | 2023-10-10 00:05 | ECG_ITS ---
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 Measurements Intervals [place] Rate: 56 P: 109 ID: [id number] QRS: -56 QRSD: 149 T: 73 QT: 452 QTc: 439 Interpretive Statements SINUS BRADYCARDIA WITH SINUS ARRHYTHMIA INTRAVENTRICULAR CONDUCTION DELAY [130+ ms QRS DURATION] POSSIBLE SEPTAL MYOCARDIAL INFARCTION , PROBABLY OLD [30 ms Q WAVE IN V1/V2] Compared to ECG 01/23/2023 06:02:47 Myocardial infarct finding now present Electronically Signed On 10-10-2023 22:03:13 GENERAL REPAIR MECHANIC by Seema Brown M.D. [email or web address] st. [facility].Nintex/store/[id number] f
[2023-10-10 01:19] VITALS: BP 168/85; PULSE 57; RESP 17; O2SAT 95
--- NOTE | 2023-10-10 01:50 | ECG_ITS ---
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 Measurements Intervals [place] Rate: 57 P: 108 CA: 184 QRS: -57 QRSD: 141 T: 80 QT: 448 QTc: 437 Interpretive Statements SINUS BRADYCARDIA WITH MARKED SINUS ARRHYTHMIA INTRAVENTRICULAR CONDUCTION DELAY [130+ ms QRS DURATION] Compared to ECG 10/10/2023 00:05:07 Myocardial infarct finding no longer present Electronically Signed On 10-10-2023 22:04:59 SALES REPRESENTATIVE HEALTH INSURANCE by Seema Brown M.D. [email or web address].[employer]/store/[id number]
[2023-10-10 02:08] LABS: Basophils # 0.1 10^3/uL (0.0-0.1); Basophils % 1.2 %; Eosinophils # 0.4 10^3/uL (0.0-0.8); Eosinophils % 5.2 %; Hematocrit 47.6 % (37-53); Lymphocytes # 2.6 10^3/uL (0.8-4.8); Mean Corpuscular HGB Conc 32.8 g/dL (30-55); Mean Corpuscular Hemoglobin 29.3 pg (27-33); Mean Corpuscular Volume 89.5 fl (82-101); Mean Platelet Volume 10.1 fL (7.4-10.4); Monocytes # 0.7 10^3/uL (0.2-0.9); Monocytes % 9.6 %; Neutrophils # 3.01 10^3/uL (1.8-7.7); Neutrophils % 44.7 %; Nucleated Red Blood Cells % 0 %; Platelet Count 223 10^3/cmm (157-399); Red Blood Count 5.32 10^6/uL (3.85-5.65); Red Cell Distribution Width 12.9 % (12.1-15.1); White Blood Count 6.74 10^3/uL (3.29-11.43)
[2023-10-10 02:28] LABS: Alanine Aminotransferase 26 U/L (0-41); Albumin Level 4.3 g/dL (3.5-5.2); Alkaline Phosphatase 64 U/L (40-130); Aspartate Amino Transferase 26 U/L (0-40); Blood Urea Nitrogen 18 mg/dL (8-23); Calcium 9.2 mg/dL (8.5-10.5); Carbon Dioxide 27 mmol/L (22-29); Chloride 105 mmol/L (98-107); Globulin 3.3 g/dL (1.3-4.6); Glucose 106 mg/dL (65-115); Osmolality Calculated 292 mOsm/kg (285-295); Sodium 140 mmol/L (136-145); Thyroid Stimulating Hormone 4.93 uIU/mL (0.27-4.20); Total Bilirubin 0.6 mg/dL (0.15-1.2); Total Protein 7.6 g/dL (6.6-8.7)
[2023-10-10 02:35] LABS: Add Urine Microscopic? NO; Charge for UA Resulting for Rev
[2023-10-10 02:40] LABS: Bilirubin Urine Neg (Negative); Blood Urine Neg (Negative); Glucose Urine UA Norm (Normal); Ketones Urine 1+ (Negative); Leukocyte Esterase Urine Negative (Negative); Nitrate Urine Negative (Negative); Protein Urine Neg (Negative); Urine Appearance Clear (CLEAR); Urine Color Yellow (Yellow); Urobilinogen Urine 1 mg/dL (Negative); pH Urine 5 (5-7)
--- NOTE | 2023-10-10 02:49 | W.ED.ARRPALP ---
HPI - Arrhythmia/Palpitations General: Chief Complaint: Arrhythmia/Palpitations Stated Complaint: High BP 200 systolic Time Seen by Provider: 10/10/23 02:28 History of Present Illness: 73-year-old male patient with a history of hypertension. He also has a history of atrial flutter/fibrillation for which she takes apixaban and flecainide. He notes his blood pressures been creeping up over the last 4 days or so. He was seen at his primary care clinic, and told to take his blood pressure medication, which appears to be losartan. This was increased to twice a day. His blood pressure was over 200 systolic tonight, and the patient had a mild headache, so he was worried. His headache is resolved. There is no chest pain or shortness of breath. No neurological symptoms. His blood pressure is still high. Associated symptoms: Deny nausea or vomiting Review of Systems Const: Denies: fever(s), chills or body aches Eyes: Denies: change in vision Card: Denies: chest pain or palpitations Resp: Denies: dyspnea, productive cough, non-productive cough or wheezing GI: Denies: abdominal pain, nausea, vomiting, diarrhea or hematochezia Skin/Breast: Denies: rash Neuro: Reports: headache(s) (resolved now); Denies: weakness in extremities, dizziness or confusion PFS ED PFSH: Medical History No pertinent past medical history Social History Substance/Drug Use: never Physical Exam Const: COMMON NORMALS: no acute distress GENERAL APPEARANCE: cooperative; not ill appearing and not frail appearing HENMT: COMMON NORMALS: normocephalic, atraumatic and Normal external nose present HEAD & SCALP: normocephalic and atraumatic FACE & SINUS: normal facial exam and face symmetric NOSE: Normal external nose present Eye: COMMON NORMALS: Equal, round and reactive pupils present and EOMs intact bilaterally PUPIL: Yes Equal, round and reactive pupils present Neck/C-Spine: GENERAL: Yes trachea midline Chest: CHEST: Yes Symmetrical chest wall rise Resp: COMMON NORMALS: normal respiratory effort, No retractions, No use of accessory muscles and clear to auscultation bilaterally AUSCULTATION: clear to auscultation bilaterally Cardio: COMMON NORMALS: regular rate and regular rhythm RATE: regular rate RHYTHM: regular rhythm GI: COMMON NORMALS: Normal to inspection, nondistended, normoactive bowel sounds present Extremity: COMMON NORMALS: no pedal edema Neuro: HÉCTOR COMA SCALE: document GCS findings [place] coma scale eye opening: Spontaneous Héctor coma scale verbal response: Orientated [place] coma scale motor response: Obey commands [place] coma scale total score: 15 SENSORY EXAM: Yes extremities (intact) Psych: COMMON NORMALS: speech normal SPEECH: Yes normal speech Skin: COMMON NORMALS: no rashes or lesions noted GENERAL SKIN EXAM: no rashes or lesions noted Course Vital Signs: Vital signs: Vital Signs Pulse Rate 61 10/10/23 03:34 Respiratory Rate 16 10/10/23 03:34 Blood Pressure 133/78 10/10/23 03:34 Pulse Oximetry 94 10/10/23 03:34 Oxygen Delivery Me thod Room Air 10/10/23 03:14 MDM - Arrhythmia/Palpitations Medical Decision Making Blood pressure is improved now following administration of medication. The patient is asymptomatic at this point. CBC is normal. BMP is normal. urinalysis is not remarkable. TSH is minimally high. EKG shows sinus rhythm of sinus arrhythmia, intraventricular conduction delay, and no acute ST wave changes. The patient does not have chest pain. With improvement in his blood pressure, resolution of any symptoms, he'll be allowed home. Amlodipine as needed for increased blood pressure at this point. He is to continue his medication as prescribed otherwise. Return for any return of or worsening symptoms. Lab Data 10/10/23 01:15 10/10/23 01:15 Laboratory Results WBC 6.74 10^3/uL (3.29-11.43) 10/10/23 01:15 RBC 5.32 10^6/uL (3.85-5.65) 10/10/23 01:15 Hgb 15.60 g/dL (11.27-16.99) 10/10/23 01:15 Hct 47.6 % (37-53) 10/10/23 01:15 MCV 89.5 fl (82-101) 10/10/23 01:15 MCH 29.3 pg (27-33) 10/10/23 01:15 MCHC 32.8 g/dL (30-55) 10/10/23 01:15 RDW 12.9 % (12.1-15.1) 10/10/23 01:15 Plt Count 223 10^3/cmm (157-399) 10/10/23 01:15 MPV 10.1 fL (7.4-10.4) 10/10/23 01:15 Neut % (Auto) 44.7 % 10/10/23 01:15 Lymph % (Auto) 39.0 % 10/10/23 01:15 [place] % (Auto) 9.6 % 10/10/23 01:15 Eos % (Auto) 5.2 % 10/10/23 01:15 Baso % (Auto) 1.2 % 10/10/23 01:15 Neut # (Auto) 3.01 10^3/uL (1.8-7.7) 10/10/23 01:15 Lymph # (Auto) 2.6 10^3/uL (0.8-4.8) 10/10/23 01:15 [place] # (Auto) 0.7 10^3/uL (0.2-0.9) 10/10/23 01:15 Eos # (Auto) 0.4 10^3/uL (0.0-0.8) 10/10/23 01:15 Baso # (Auto) 0.1 10^3/uL (0.0-0.1) 10/10/23 01:15 Nucleated RBC % (auto) 0 % 10/10/23 01:15 Nucleated RBCs # 0.0 /100WBC 10/10/23 01:15 Sodium 140 mmol/L (136-145) 10/10/23 01:15 Potassium 4.0 mmol/L (3.5-5.1) 10/10/23 01:15 Chloride 105 mmol/L (98-107) 10/10/23 01:15 Carbon Dioxide 27 mmol/L (22-29) 10/10/23 01:15 Anion Gap 12.0 (5-19) 10/10/23 01:15 BUN 18 mg/dL (8-23) 10/10/23 01:15 Creatinine 0.9 mg/dL (0.7-1.2) 10/10/23 01:15 GFR Calculation Not Reportable 10/10/23 01:15 Glucose 106 mg/dL (65-115) 10/10/23 01:15 Calculated Osmolality 292 mOsm/kg (285-295) 10/10/23 01:15 Calcium 9.2 mg/dL (8.5-10.5) 10/10/23 01:15 Total Bilirubin 0.6 mg/dL (0.15-1.2) 10/10/23 01:15 AST 26 U/L (0-40) 10/10/23 01:15 ALT 26 U/L (0-41) 10/10/23 01:15 Alkaline Phosphatase 64 U/L (40-130) 10/10/23 01:15 Total Protein 7.6 g/dL (6.6-8.7) 10/10/23 01:15 Albumin 4.3 g/dL (3.5-5.2) 10/10/23 01:15 Globulin 3.3 g/dL (1.3-4.6) 10/10/23 01:15 TSH 4.93 uIU/mL (0.27-4.20) H 10/10/23 01:15 Urine Color Yellow (Yellow) 10/10/23 02:25 Urine Appearance Clear (CLEAR) 10/10/23 02:25 Urine pH 5 (5-7) 10/10/23 02:25 Ur Specific [place] 1.020 (1.005-1.030) 10/10/23 02:25 Urine Protein Neg (Negative) 10/10/23 02:25 Urine Glucose (UA) Norm (Normal) 10/10/23 02:25 Urine Ketones 1+ (Negative) H 10/10/23 02:25 Urine Blood Neg (Negative) 10/10/23 02:25 Urine Nitrate Negative (Negative) 10/10/23 02:25 Urine Bilirubin Neg (Negative) 10/10/23 02:25 Urine Urobilinogen 1 mg/dL (Negative) H 10/10/23 02:25 Ur Leukocyte Esterase Negative (Negative) 10/10/23 02:25 No radiology studies performed this visit Discharge Plan Discharge Patient Disposition: Home Clinical Impression: Hypertensive urgency Condition: Stable Prescriptions: New amlodipine 10 mg tablet 10 mg PO DAILY Qty: 30 0RF No Action flecainide 100 mg tablet 100 mg PO Q12H Qty: 180 3RF Eliquis 5 mg tablet 5 mg PO BID Qty: 60 3RF losartan 50 mg tablet 50 mg PO DAILY Qty: 90 3RF metoprolol tartrate 25 mg tablet 25 mg PO DIRECTED PRN (Reason: prn for HR > 130) Qty: 60 0RF Rx Instructions: take only if heart rate > 130 Discharge Orders: Discharge ED (Routine); Ordered 10/10/23 Ordered By: Diallo Chen Referrals: Patrick Carlson NP [Primary Care Provider] - Finesse Reinoso DO [Staff Physician] - 1-3 days Patient Instructions: Hypertension (ED), Opioid Safety, Pain Management Activity Restrictions/Additional Instructions: Take your blood pressure twice daily starting in the morning. Report numbers to your physician. If your blood pressure remains greater than 150/90, take the medication prescribed to you this morning. If it is less than this, you do not have to take the medication. Follow-up with your doctor this week. Return for worsening headache, any chest discomfort, shortness of breath, other concerning symptoms. Coding Level of Care Code ED Switch Operators Supervisor for Rita Garvey
[2023-10-10 03:14] VITALS: BP 160/91; PULSE 62; RESP 16; O2SAT 95
[2023-10-10] MEDS: amlodipine 10 mg Tablet PO (03:14)
[2023-10-10] MEDS: enalaprilat 2.5 mg/2 mL SDV 1.25 MG IVP (03:14)
[2023-10-10] MEDS: labetalol 5 mg/mL SDV 20mL 20 MG IVP (03:14)
[2023-10-10 03:34] VITALS: BP 133/78; PULSE 61; RESP 16; O2SAT 94
== END 2023-10-10 03:41 | disposition home or self-care (01) ==
PROVIDERS: Emergency Provider Emergency Medicine; PCP Nurse Practitioner Family
DX: I16.0 Hypertensive urgency (principal); Z79.01 Long term (current) use of anticoagulants; I10 Essential (primary) hypertension
CPT/HCPCS: 80053; 81003; 84443; 85025; 93005; 96374; 96375; 99284; J3490

== ENCOUNTER → 2024-05-02 11:04 | Outpatient (BNVA) | payer MEDICAID, SELFPAY | PROVIDERS: PCP Nurse Practitioner Family; Visit Provider Internal Medicine Cardiovascular Disease | DX: I48.3 Typical atrial flutter (principal); I10 Essential (primary) hypertension; Z79.01 Long term (current) use of anticoagulants; Z79.899 Other long term (current) drug therapy | CPT/HCPCS: 99214 ==

== ENCOUNTER 2024-12-19 17:06 | Emergency (ER) | payer MEDICARE, MEDICAID, SELFPAY ==
--- NOTE | 2024-12-19 17:16 | XRR_ITS ---
PROCEDURE INFORMATION: Exam: XR Chest Exam date and time: 12/19/2024 5:55 PM Age: 74 years old Clinical indication: Cough TECHNIQUE: Imaging protocol: Radiologic exam of the chest. Views: 1 view. COMPARISON: CR XR chest 1V portable [id number] 01/21/2023 6:42 PM FINDINGS: Lungs: Unremarkable. No consolidation. Pleural spaces: Unremarkable. No pleural effusion. No pneumothorax. Heart/Mediastinum: Unremarkable. No cardiomegaly. Bones/joints: Unremarkable. XR/XR chest 1V portable [id number] IMPRESSION: No acute findings.
[2024-12-19 17:35] VITALS: BP 135/68; PULSE 99; RESP 18; TEMP 37.2; O2SAT 92; BMI 36.9
[2024-12-19 18:52] LABS: Covid PCR NEGATIVE (Negative); Influenza A POSITIVE (Negative); Influenza B NEGATIVE (Negative); Respiratory Syncytial Virus Ce NEGATIVE (Negative)
--- NOTE | 2024-12-19 19:00 | W.ED.URI ---
HPI - URI/Sore Throat General: Chief Complaint: Upper Respiratory Infection Stated Complaint: congestion Time Seen by Provider: 12/19/24 17:43 Source: patient Mode of arrival: ambulatory Limitations: no limitations History of Present Illness: Patient is a 74-year-old male with no pertinent past medical history who reports to the emergency department with upper respiratory symptoms beginning today. He believes he has viral infection, he is reporting a fever as high as 103, cough, and congestion. States he took Advil prior to coming to the ED, temperature 98.9 here. Denies smoking history, no history of COPD. Denies known sick contacts. MD elicited complaint: fever, cough and nasal congestion Onset (ago): hour(s) Consistency: constant Severity: moderate Able to tolerate fluids by mouth: Yes Exacerbating factors: nothing Relieving factors: nothing Associated symptoms: Reports fever(s) and nasal congestion; Deny abdominal pain, chills, chest pain, diarrhea, ear or mastoid pain, headache(s), nausea or vomiting Treatments prior to arrival: other (Advil) Related Data Previous Rx's Medication Instructions Recorded flecainide 100 mg tablet 100 mg PO Q12H #180 tabs 05/10/24 losartan 50 mg tablet See Rx Instructions .Route 08/17/24 .COMPLEX #90 tabs apixaban 5 mg tablet (Eliquis) See Rx Instructions .Route 10/10/24 .COMPLEX #60 tabs benzonatate 150 mg capsule 150 mg PO BID PRN cough #20 caps 12/19/24 oseltamivir 75 mg capsule (Tamiflu) 75 mg PO BID 5 days #10 caps 12/19/24 Allergies Allergy/AdvReac Type Severity Reaction Status Date / Time No Known Allergies Allergy Verified 12/19/24 17:40 Review of Systems General: Reports: 10 or more systems reviewed and unremarkable except in HPI and below Const: Reports: fever(s); Denies: chills or fatigue Eyes: Denies: change in vision ENMT: Reports: nasal congestion; Denies: throat pain, ear or mastoid pain or nasal discharge Card: Denies: chest pain, palpitations, swelling of feet/ankles or lightheadedness Resp: Reports: non-productive cough; Denies: dyspnea, productive cough or wheezing GI: Denies: abdominal pain, nausea, vomiting, diarrhea or constipation : Denies: flank pain, difficulty urinating, dysuria or urinary frequency Musc: Denies: neck pain, back pain or joint pain Skin/Breast: Denies: rash Neuro: Denies: headache(s), numbness in extremities or weakness in extremities PFSH ED PFSH: Medical History No pertinent past medical history Social History Smoking and tobacco/nicotine status: never used tobacco/nicotine Substance/Drug Use: never Physical Exam Const: COMMON NORMALS: no acute distress, patient oriented x3 and no limitations GENERAL APPEARANCE: cooperative, comfortable and well developed ORIENTATION/CONSCIOUSNESS: Yes awake HENMT: COMMON NORMALS: normocephalic, atraumatic and hearing grossly normal bilaterally HEAD & SCALP: normocephalic and atraumatic THROAT: posterior oropharynx normal Eye: COMMON NORMALS: Equal, round and reactive pupils present, EOMs intact bilaterally and conjunctivae normal CONJUNCTIVA: Yes conjunctivae normal PUPIL: Yes Equal, round and reactive pupils present Neck/C-Spine: COMMON NORMALS: full ROM, supple and no JVD Resp: COMMON NORMALS: normal respiratory effort, No retractions, No use of accessory muscles and clear to auscultation bilaterally AUSCULTATION: clear to auscultation bilaterally Cardio: COMMON NORMALS: no JVD, regular rate, regular rhythm, No clicks present (Cardio), No murmurs present (Cardio) and No rub (Cardio) RATE: regular rate RHYTHM: regular rhythm GI: COMMON NORMALS: Normal to inspection, nondistended, normoactive bowel sounds present, Soft to palpation and non-tender AUSCULTATION: Yes normoactive bowel sounds PALPATION: Yes Soft to palpation RECTAL EXAM: Yes deferred Extremity: COMMON NORMALS: normal to inspection, full ROM and capillary refill normal Neuro: COMMON NORMALS: patient oriented x3 Skin: COMMON NORMALS: no rashes or lesions noted GENERAL SKIN EXAM: no rashes or lesions noted Course Vital Signs: Vital signs: Vital Signs Temperature 98.9 F 12/19/24 17:35 Pulse Rate 99 12/19/24 17:35 Respiratory Rate 18 12/19/24 17:35 Blood Pressure 135/68 12/19/24 17:35 Pulse Oximetry 92 12/19/24 17:35 Oxygen Delivery Me thod Room Air 12/19/24 17:35 MDM - URI/Sore Throat Medical Decision Making Patient positive for flu a here, x-ray is unremarkable. Symptoms began today so we will start him on Tamiflu. He request something for cough, we started on Tessalon Perles. Show Decadron given prior to discharge. Return precautions given told him to follow-up with primary care. Lab Data Radiology Impressions Chest X-Ray 12/19/24 17:16 IMPRESSION: No acute findings. Laboratory Results Coronavirus (PCR) Negative (Negative) 12/19/24 17:55 Influenza A (PCR) Positive (Negative) 12/19/24 17:55 Influenza Type B (PCR) Negative (Negative) 12/19/24 17:55 RSV (PCR) Negative (Negative) 12/19/24 17:55 All radiology interpretation(s) finalized by discharge Discharge Plan Discharge Patient Disposition: Home Clinical Impression: Influenza Condition: Stable Prescriptions: New oseltamivir [Tamiflu] 75 mg capsule 75 mg PO BID 5 Days Qty: 10 0RF benzonatate 150 mg capsule 150 mg PO BID PRN (Reason: cough) Qty: 20 0RF No Action flecainide 100 mg tablet 100 mg PO Q12H Qty: 180 3RF losartan 50 mg tablet See Rx Instructions .ROUTE .COMPLEX Qty: 90 3RF Dose Instruction: TAKE 1 TABLET BY MOUTH EVERY DAY Rx Instructions: TAKE 1 TABLET BY MOUTH EVERY DAY Eliquis 5 mg tablet See Rx Instructions .ROUTE .COMPLEX Qty: 60 3RF Dose Instruction: TAKE ONE TABLET BY MOUTH TWICE DAILY Rx Instructions: TAKE ONE TABLET BY MOUTH TWICE DAILY Discharge Orders: Discharge ED (Routine); Ordered 12/19/24 Ordered By: Elvis Robert Referrals: Patrick Carlson NP [Primary Care Provider] - Patient Instructions: Influenza (ED) Activity Restrictions/Additional Instructions: Tamiflu as prescribed. Tessalon Perles for cough. Contact precaution as you have been diagnosed with influenza A. Motrin and Tylenol for fevers or bodyaches. Drink plenty of fluids. Follow-up with primary care. Coding Level of Care Code ED Reinforcement Maker for Rita Garvey
[2024-12-19] MEDS: oseltamivir phosphate 75 mg Capsule PO (19:15)
[2024-12-19] MEDS: dexamethasone 10 mg/mL INJ IM (19:15)
[2024-12-19 19:42] VITALS: BP 122/66; PULSE 90; O2SAT 95
== END 2024-12-19 19:40 | disposition home or self-care (01) ==
PROVIDERS: Emergency Medicine; Emergency Provider Physician Assistant; PCP Nurse Practitioner Family
DX: J10.1 Influenza due to other identified influenza virus with other respiratory manifestations (principal); Z11.52 Encounter for screening for COVID-19; Z79.01 Long term (current) use of anticoagulants
CPT/HCPCS: 71045; 87637; 96372; 99284; J1100

== ENCOUNTER → 2025-10-09 10:30 | Outpatient (BNVA) | payer MEDICARE, SELFPAY | PROVIDERS: PCP Nurse Practitioner Family; Visit Provider Internal Medicine Cardiovascular Disease | DX: I48.92 Unspecified atrial flutter (principal); Z79.01 Long term (current) use of anticoagulants; I10 Essential (primary) hypertension; Z79.899 Other long term (current) drug therapy; R07.9 Chest pain, unspecified | CPT/HCPCS: 93005; 99214 ==